=== PATIENT | male | born 1945 | race Caucasian/White ===

== ENCOUNTER → 2018-02-11 12:25 | Outpatient (CLI) | payer MEDICARE, OTHER | END | disposition home or self-care (01) | LOC: D.CT 12:25 | DX: R10.32 Left lower quadrant pain (principal); R31.9 Hematuria, unspecified ==

== ENCOUNTER → 2018-02-27 07:30 | Outpatient (CLI) | payer MEDICARE, OTHER ==
[~2018-02-27 07:30] MED LIST: CHLOR-TRIMETON4 MG PO; FERROUS SULFAT325 MG PO; FLOMAX0.4 MG PO; MOBIC7.5 MG PO; NASACORT10.8 ML NASAL; PROSCAR5 MG PO; SINGULAIR10 MG PO
[2018-05-04 12:14] VITALS: BMI 28.6
== END | disposition home or self-care (01) ==
LOC: D.MRI 07:30
DX: N28.1 Cyst of kidney, acquired (principal); R31.9 Hematuria, unspecified

== ENCOUNTER 2018-04-20 20:48 | Inpatient (IN) | payer MEDICARE, OTHER ==
[~2018-04-20] VITALS: Ht 185.4 cm; Wt 97.7 kg
--- NOTE | ~2018-04-20 | EC ---
PATIENT:KENNETH BUSCH DATE OF SERVICE: 04/20/18 SEX: M MEDICAL RECORD: [id number] DATE OF : [birth year] LOCATION:[place] [address] AGE OF PATIENT: 72 ADMISSION DATE: 04/20/18 REFERRING PHYSICIAN: INTERPRETING PHYSICIAN: GRECIA ALVAREZ MD ECHOCARDIOGRAM REPORT ECHO CHARGES 4 ECHO COMPLETE Date: 04/21/18 CLINICAL DIAGNOSIS: AFIB ECHOCARDIOGRAPHIC MEASUREMENTS (adult normal given) AC root (d.<3.7cm) 3.9 cm LV Septum d (<1.2 cm> 1.6 cm Valve Excursion 1.8 cm LV Septum (systole) 1.7 cm Left Atria (s.<4.0cm> 4.1 cm LVPW d(<1.2cm) 1.4 cm RV (d.<2.3cm) 4.0 cm LVPW (sytole) 2.1 cm LV diastole(<5.6CM) 6.7 cm MV E-F(>70mm/sec) cm LV systole 4.4 cm LVOT Diameter 2.1 cm MV exc.(>10mm) 1.1 cm Est.ejection fraction (50-75%) % DOPPLER: LVIT cm/sec A 89.0 cm/sec E 137 cm/sec LA cm/sec RVSP 34 mmHg LVOT 179 cm/sec AOP1/2T m/s Asc. Ao 208 cm/sec RVOT 74 cm/sec RA cm/sec PA 30 cm/sec AV Gradient Peak 17.28mmHg AV Mean 8.76 mmHg AV Area 2.8 cm MV Gradient Peak 11.83mmHg MV Mean 3.66 mmHg MV Area cm COMMENTS: Assembler Surgical Garment: 2 ARTURO PEPPER Diet Supervisor: 3 Dr. Snow TAPE# PACS Pericardial Effusion Y DATE OF SERVICE: Adequate 2D, jose miguel flow, spectral Doppler and M-Mode. No LVH. LV internal dimension is normal, wall motion normal. EF is greater than or equal to 55%. Aortic valve is tricuspid. No evidence of stenosis by Doppler interrogation. Left atrium is normal. Mitral valve shows no prolapse. Trace MR. Right-sided chamber size is grossly normal. Trace TR. TRANSINT:[id number] Voice Confirmation ID: [id number] DOCUMENT ID: [id number] ECHOCARDIOGRAM REPORT [id number] KENNETH BUSCH GRECIA ALVAREZ MD at 0843 CC: [id number] DICTATION DATE: 04/21/18 1353 COUNTER STACKER: 04/21/18 1400 ADM IN [facility] [address] [place] [id number]
--- NOTE | ~2018-04-20 | OP ---
PATIENT NAME: KENNETH BUSCH MEDICAL RECORD: [id number] :45 LOCATION:[place] ADMISSION DATE:04/20/18 SURGEON: JUAN CHEEMA MD DATE OF OPERATION: 05/05/2018 SURGEON: Juan Cheema MD PROCEDURE: Bronchoscopy. PROCEDURE NOTE: With the patient in the intensive care unit and ventilated, the patient had right upper lobe atelectasis on chest x-ray after replacement of the endotracheal tube to a larger tube earlier and after mitral and aortic valve replacement. The bronchoscope was inserted, but at the tip of the endotracheal tube, the posterior pharynx was visualized, consistent with near extubation. Therefore, the bronchoscope was removed and the endotracheal tube was removed. The patient was bag masked and the case was turned over to anesthesia for intubation. Later, with suctioning of thick mucus, all lobar and segmental bronchi were cleared and the tube was in the appropriate position and a chest x-ray confirmed reexpansion of the right upper lobe. TRANSINT:[id number] Voice Confirmation ID: [id number] DOCUMENT ID: [id number] JUAN CHEEMA MD at 1437 CC: [id number] DICTATION DATE: 05/05/18 1648 FOOD SERVICE SPECIALIST: 05/05/18 1659 ADM IN [place] [id number] [place] [address]
--- NOTE | ~2018-04-20 | EC ---
PATIENT:KENNETH BUSCH DATE OF SERVICE: 04/20/18 SEX: M MEDICAL RECORD: [id number] DATE OF : 45 LOCATION:[place] [address] AGE OF PATIENT: 72 ADMISSION DATE: 04/20/18 REFERRING PHYSICIAN: INTERPRETING PHYSICIAN: BRETT EMERSON MD ECHOCARDIOGRAM REPORT ECHO CHARGES 5 ECHO LIMITED Date: 04/27/18 CLINICAL DIAGNOSIS: ASSESS FOR VEGATATION,ENDOCARDIIS SEPSIS ECHOCARDIOGRAPHIC MEASUREMENTS (adult normal given) AC root (d.<3.7cm) 3.9 cm LV Septum d (<1.2 cm> 1.6 cm Valve Excursion 1.8 cm LV Septum (systole) 1.7 cm Left Atria (s.<4.0cm> 4.1 cm LVPW d(<1.2cm) 1.4 cm RV (d.<2.3cm) 4.0 cm LVPW (sytole) 2.1 cm LV diastole(<5.6CM) 6.7 cm MV E-F(>70mm/sec) cm LV systole 4.4 cm LVOT Diameter 2.1 cm MV exc.(>10mm) 1.1 cm Est.ejection fraction (50-75%) % DOPPLER: LVIT cm/sec A 89.0 cm/sec E 137 cm/sec LA cm/sec RVSP 34 mmHg LVOT 179 cm/sec AOP1/2T m/s Asc. Ao 208 cm/sec RVOT 74 cm/sec RA cm/sec PA 30 cm/sec AV Gradient Peak 17.28mmHg AV Mean 8.76 mmHg AV Area 2.8 cm MV Gradient Peak 11.83mmHg MV Mean 3.66 mmHg MV Area cm COMMENTS: Dental Director: 2 ARTURO PEPPER Glass Maker: 4 Dr. Eemrson TAPE# PACS Pericardial Effusion N DATE OF SERVICE: PROCEDURE: Limited transthoracic echocardiogram. FINDINGS: Looking valvular structure, it appears that there is possibly vegetation on the aortic valve, associated with at least moderate aortic insufficiency. There also appears to be a possible vegetation on the posterior valve leaflet of the mitral valve associated with moderate mitral regurgitation. A transesophageal echo would be more helpful for further characterization. ECHOCARDIOGRAM REPORT [id number] KENNETH BUSCH TRANSINT:[id number] Voice Confirmation ID: [id number] DOCUMENT ID: [id number] BRETT EMERSON MD at 0738 CC: [id number] DICTATION DATE: 04/28/18 0745 ELECTRICAL LINEMAN: 04/28/18 0755 ADM IN [facility] [address] [place] [id number]
--- NOTE | ~2018-04-20 | OP ---
PATIENT NAME: KENNETH BUSCH MEDICAL RECORD: [id number] :45 LOCATION:[place] [facility] ADMISSION DATE:04/20/18 SURGEON: MONTY MCKEON MD DATE OF OPERATION: 05/05/2018 SURGEON: Monty Mckeon MD ASSISTANTS: 1. Elmer Dewitt MD 2. KULDIP Tobin OPERATIONS PERFORMED: 1. Aortic valve replacement (21-mm Fritz pericardial bioprosthesis). 2. Mitral valve replacement (31-mm Fritz Magna mitral bioprosthesis). PREOPERATIVE DIAGNOSIS: Aortic and mitral endocarditis. POSTOPERATIVE DIAGNOSIS: Aortic and mitral endocarditis. ANESTHESIA: General endotracheal anesthesia. ESTIMATED BLOOD LOSS: Total cardiopulmonary bypass with 3 packed red blood cells, 4 FFPs, and 2 platelets. COMPLICATIONS: None. SPECIMENS: 1. Aortic valve leaflets. 2. Mitral valve anterior leaflet and portion of the posterior leaflet with endocarditis. CONDITION: Critical. DISPOSITION: CV ICU. OPERATIVE FINDINGS: 1. Transesophageal echocardiography confirmed aortic and mitral endocarditis with moderate aortic and mitral insufficiency; no chamber dilation; and after separation from cardiopulmonary bypass, no perivalvular aortic or mitral valve insufficiency. 2. Aortic valve had severe endocarditis affecting all 3 cusps of the aortic valve, but did not extend to the annulus, which was noncalcified. 3. The mitral valve had endocarditis along the free edge of the anterior leaflet and also around the posterior leaflet, extending down on to the secondary chordee, which was removed but a portion of the posterior leaflet was preserved. The entire anterior leaflet was removed. 4. Two liters serous right pleural effusion and one liter left pleural effusion. OPERATIVE INDICATION: Aortic and mitral endocarditis. OPERATIVE SUMMARY IN DETAIL: The patient was brought to the operating suite. General anesthesia was obtained. The patient was prepped and draped. A right femoral arterial catheter was placed. Median sternotomy incision was made. Subcutaneous tissue was divided with electrocautery. Sternum was divided with a OPERATIVE REPORT [id number] NARAYANKENNETH saw. The pericardium was opened. Heparin was given. Aorta was cannulated. Bicaval cannulation was performed. Retrograde cardioplegia cannula was inserted. The patient was placed on cardiopulmonary bypass and cooled. Crossclamp was placed. A 14-gauge angiocatheter was used for aortic root cardioplegia site and this was given antegrade as much as possible by 400 cc and then retrograde 800 cc and then retrograde was repeated at 20-minute intervals during the crossclamp time. Transverse aortotomy was performed. The valve was visualized and the infected valve cusps were removed, taking care to protect the left main. The interatrial groove was dissected out. Mitral valve was visualized. Infected portion of the anterior leaflet was taken out as well as the remainder of the anterior leaflet down to the papillary muscles and then the infected one-third of the posterior leaflet, taking care to preserve the apparatus of the medial portion of the posterior leaflet. The valve was sized appropriately. Pledgeted sutures were placed along the atrial side through the sewing ring. The valve was carefully lowered into place. Sutures were tied. On inspecting through the valve, the valve was well seated. Then, working from the atrial side, the mitral valve was visualized with good placement and interrupted pledgeted sutures were placed from ventricular to aortic side through the valve sewing ring and the valve was carefully lowered into place. The sutures were tied. On inspecting through the valve, there was no subvalvular obstruction. Thorough irrigation was undertaken. The patient was rewarmed. The atriotomy was closed with double running pledgeted suture. Then, the aortotomy was closed with double running pledgeted suture. The patient was placed in steep Trendelenburg and the left ventricular apex was de-aired and then, after removal of the crossclamp, again de-aired using the transesophageal echocardiography for assistance. The patient resumed a spontaneous rhythm. Eventually, had some atrial fibrillation that required esmolol, but finally a sinus rhythm. Atrial and ventricular pacing wires were placed. Retrograde cannula was removed and the site was oversewn. The cardioplegia site was used for de-airing and then later closed with pledgeted suture as well as 6-0 suture. The patient was fully rewarmed, weaned from cardiopulmonary bypass, and was stable. The patient was decannulated. Cannula sites were oversewn. Protamine was given. Thorough irrigation was undertaken. Drains were placed in mediastinum and both pleural cavities. The pericardial fat was approximated over the aorta. The sternum was closed with wires. Fascia was closed. Subcutaneous tissue was closed. Skin was closed. Dermabond was placed. Needle and sponge counts were correct. The patient was taken to ICU in stable condition. TRANSINT:[id number] Voice Confirmation ID: [id number] DOCUMENT ID: [id number] MONTY MCKEON MD at 1437 CC: ANGEL MARTINEZ and GRECIA ALVAREZ MD [id number] DICTATION DATE: 05/05/18 1646 RELAY OPERATOR: 05/05/18 1728 ADM IN [facility] [address] [place] [id number]
--- NOTE | ~2018-04-20 | TEE ---
PATIENT:KENNETH BUSCH MEDICAL RECORD: [id number] LOCATION:[place] [address] AGE OF PATIENT: 72 ADMISSION DATE: 04/20/18 SEX: M REFERRING PHYSICIAN: INTERPRETING PHYSICIAN: RIKA FLORES MD TRANSESOPHAGEAL ECHOCARDIOGRAM Date: 05/05/18 KAVON CHARGE Y INDICATIONS: ENDOCARDITIS OF AORTIC AND MITRAL VALVE, AVR/MVR PREMEDICATIONS: PATIENT'S RESPONSE PROCEDURE DOPPLER MEASUREMENTS: LVIT LA PA 30 RA LVOT 179 RVOT 74 Asc. Ao 208 AV Gradient Peak 17.28 AV Mean 8.76 AV Area 2.8 MV Gradient Peak 11.83 MV Mean 3.66 MV Area INTERPRETATION: Doppler: 2-D: VEGATATION ON AORTIC AND MITRAL VALVE COLOR FLOW DOPPLER SEVERE AI/MR NORMAL SALINE STUDY: MISCELLANOUS: DIAGNOSIS: PLAN: Nursing Home Social Worker:Ana Snow Urologist Physician: Alfred PEPPER COMMENTS: MIKE PATIENT DATE OF SERVICE: PROCEDURE: Transesophageal echo evaluation of valvular structures during aortic and mitral valve replacement secondary to endocarditis. FINDINGS: 1. Left ventricular chamber size is within normal limits. Left ventricular systolic function is normal. Overall ejection fraction estimated 60%. 2. Left atrium, right atrium, and right ventricle chamber sizes are within TRANSESOPHAGEAL ECHOCARDIOGRAM REPORT [id number] KENNETH BUSCH normal limits. 3. Valvular structures have a definite vegetation on the mitral valve as well as aortic valve, but this is not a new finding. The patient is scheduled for valve replacement. 4. Doppler interrogation reveals [id number] aortic insufficiency, mild mitral regurgitation, no other valvular insufficiency or stenosis. 5. No evidence of pericardial effusion or left ventricular thrombus. TRANSINT:[id number] Voice Confirmation ID: [id number] DOCUMENT ID: [id number] at 1729 CC: [id number] DICTATION DATE: 05/05/18 1241 AUTOMOBILE RENTAL AGENT: 05/05/18 1247 ADM IN [place] [id number] [place] [address]
--- NOTE | ~2018-04-20 | CN ---
PATIENT NAME:KENNETH BUSCH MEDICAL RECORD: [id number] : 45 LOCATION:[place] ADMIT DATE: 04/20/18 ACCOUNT: [id number] CONSULTING PHYSICIAN: ELMER ROUSSEAU MD REFERRING PHYSICIAN: ANGEL MARTINEZ MD DATE OF CONSULTATION: 04/25/2018 CONSULT REQUESTING PHYSICIAN: Angel Martinez MD REASON FOR CONSULTATION: Vent management status post cardiopulmonary arrest. HISTORY OF PRESENT ILLNESS: Mr. Busch is a 72-year-old gentleman who is now orally intubated and sedated. The patient was brought into the ICU yesterday with sepsis. This morning, the patient had cardiac arrest. The patient was coded, intubated. Now, the history was taken by talking to the nursing staff as well as reviewing the patient's notes. The patient has become asystolic, code blue was called. The patient was sedated by the ER doctor, required epinephrine, atropine, bicarbonate. REVIEW OF SYSTEMS: The detail is not obtainable. PAST MEDICAL HISTORY: 1. History of detached retina. 2. History of kidney stone. 3. History of urinary tract infection. 4. Osteoarthritis. PAST SURGICAL HISTORY: 1. Arthroscopic knee surgery. 2. Bladder surgery. 3. Melanoma removed. ALLERGIES: No known drug allergy. MEDICATIONS: On [place] is reviewed. PERSONAL AND SOCIAL HISTORY: The patient is a nonsmoker, nondrinker. He is and lives with his . FAMILY HISTORY: Noncontributory. PHYSICAL EXAMINATION: GENERAL: Now, the patient is orally intubated and sedated. VITAL SIGNS: The blood pressure is 106/48; pulse is 72; respiration, he is on assist control mechanical ventilation. HEENT: Conjunctivae are pink. Sclerae are not icteric. NECK: Supple, no JVD. CHEST: There are bilateral crackles. No wheezing. HEART: Rate and rhythm is regular, normal sound, no murmur. ABDOMEN: Soft, bowel sounds present. No hepatosplenomegaly. RECTAL: Deferred. EXTREMITIES: No cyanosis, no clubbing. There is no pedal edema. SKIN: Warm, normal turgor. CENTRAL NERVOUS SYSTEM: The patient is orally intubated and sedated. CONSULT REPORT [id number] KENNETH BUSCH LABORATORY DATA: CBC: The WBC is 19.2, hemoglobin 8.8, hematocrit 28.1, the platelet count 213. The neutrophils are 84.5%. Chemistry; ABG: The pH is 7.29, pCO2 is 36.9, the pO2 is 231, the bicarbonate is 18.1. The lactic acid level is 6.54. IMAGING: Chest radiograph: There is bilateral increased interstitial marking consistent with pulmonary edema. There is moderate bilateral pleural effusion. IMPRESSION: 1. Acute respiratory failure secondary to; A. Cardiopulmonary arrest. B. Pulmonary edema, possible pneumonia. 2. Bilateral pleural effusion. 3. Cardiopulmonary arrest. 4. Acute myocardial infarction with elevated cardiac enzymes. 5. Sepsis secondary to Enterococcus bacteremia. 6. Leukocytosis. 7. Lactic acidosis with associated metabolic acidosis. 8. Acute kidney injury. 9. Splenic infarction. 10. Pulmonary edema consistent with a congestive heart failure. 11. Bilateral pleural effusion. RECOMMENDATION: 1. Continue the mechanical ventilation, adjust the setting. 2. Antibiotic per Dr. Hernandez. 3. DVT and GI bleed prophylaxis. 4. Albuterol ipratropium nebulizer. 5. Check sputum for culture and sensitivity. 6. Fluid resuscitation. Keep the CVP [address] Snow is on the case. Nephrology is on the case. Follow up labs and chest radiograph. The prognosis is guarded. Discussed with the RN and BUSINESS DEVELOPER, spoke with the family. The critical care time is 50 minutes. TRANSINT:[id number] Voice Confirmation ID: [id number] DOCUMENT ID: [id number] ELMER ROUSSEAU MD at 1301 CC: [id number] DICTATION DATE: 04/25/18 1240 MEDICAL RECORDS TECHNICIAN: 04/25/18 1312 ADM IN [place] [id number] [place] [id number]
--- NOTE | ~2018-04-20 | EC ---
PATIENT:KENNETH BUSCH DATE OF SERVICE: 04/20/18 SEX: M MEDICAL RECORD: [id number] DATE OF : 45 LOCATION:[place] [address] AGE OF PATIENT: 72 ADMISSION DATE: 04/20/18 REFERRING PHYSICIAN: INTERPRETING PHYSICIAN: GRECIA ALVAREZ MD ECHOCARDIOGRAM REPORT ECHO CHARGES 5 ECHO LIMITED Date: 04/30/18 CLINICAL DIAGNOSIS: ASSESS FOR VEGATATION,ENDOCARDIIS SEPSIS ECHOCARDIOGRAPHIC MEASUREMENTS (adult normal given) AC root (d.<3.7cm) 3.9 cm LV Septum d (<1.2 cm> 1.6 cm Valve Excursion 1.8 cm LV Septum (systole) 1.7 cm Left Atria (s.<4.0cm> 4.1 cm LVPW d(<1.2cm) 1.4 cm RV (d.<2.3cm) 4.0 cm LVPW (sytole) 2.1 cm LV diastole(<5.6CM) 6.7 cm MV E-F(>70mm/sec) cm LV systole 4.4 cm LVOT Diameter 2.1 cm MV exc.(>10mm) 1.1 cm Est.ejection fraction (50-75%) % DOPPLER: LVIT cm/sec A 89.0 cm/sec E 137 cm/sec LA cm/sec RVSP 34 mmHg LVOT 179 cm/sec AOP1/2T m/s Asc. Ao 208 cm/sec RVOT 74 cm/sec RA cm/sec PA 30 cm/sec AV Gradient Peak 17.28mmHg AV Mean 8.76 mmHg AV Area 2.8 cm MV Gradient Peak 11.83mmHg MV Mean 3.66 mmHg MV Area cm COMMENTS: Account Group Supervisor: 2 ARTURO PEPPER Manager Medicaid: 3 Dr. Snow TAPE# PACS Pericardial Effusion N DATE OF SERVICE: PROCEDURE: Transesophageal echo. The patient currently sedated on the vent. The transesophageal Omniplane probe was placed in the distal esophagus and proximal stomach without difficulty. FINDINGS: LVH is present. LV internal dimensions are normal. Wall motion is normal. EF is greater than or equal to 55%. Aortic valve shows obvious vegetation on the coronary cusp. This measures approximately 0.5 cm. There is ECHOCARDIOGRAM REPORT [id number] KENNETH BUSCH moderate AI by color flow imaging. Left atrium appears normal dimensions. Left atrial appendage is well visualized with normal contractility. Mitral valve shows approximately 1 cm vegetation on anterior mitral leaflet with [id number] MR. Right-sided chamber is grossly normal. Mild TR with color flow imaging. At the end of procedure, the probe was turned posterior and this showed minimal atherosclerotic debris in the descending aorta. FINAL IMPRESSION: Findings consistent with endocarditis of both aortic and mitral valve with preserved LV systolic function, moderate AI, moderate to severe MR. TRANSINT:[id number] Voice Confirmation ID: [id number] DOCUMENT ID: [id number] GRECIA ALVAREZ MD at 0843 CC: [id number] DICTATION DATE: 04/30/18 1321 MULE TENDER: 04/30/18 1328 ADM IN [place] [id number] [place] [address]
--- NOTE | ~2018-04-20 | HEMODYNAMI ---
PATIENT:KENNETH BUSCH MEDICAL RECORD: [id number] : 45 [id number] ADMISSION DATE: 04/20/18 Generatedon:05/04/20189:15 Patient name: KENNETH BUSCH Patient #: [id number] SSN: : 1945 Date of study: 05/04/2018 Page: Of Hemodynamic Procedure Report Patient Data Patient Demographics Procedure consent was obtained First Name: KENNETH Gender: Male Last Name: NARAYAN : 1945 Patient #: [id number] Age: 72 year(s) Race: Unknown Additional ID: [id number] Contact details [address]: [address] [place] [address] State: [place] City: [place] Zip code: [address] Past Medical History Allergies: No known allergies Admission Admission Data Admission Date: 04/20/2018 Admission Time: 22:59 Room #: D.2313 Lab Results Lab Result Date: 05/04/2018 Lab Result Time: 0:00 Biochemistry Name Units Result Min Max BUN mg/dl 23 --(----)-* 7 18 Creatinine mg/dl 1 --(--*-)-- 0.6 1.3 CBC Name Units Result Min Max Hemoglobin g/dl 8.2 *-(----)-- 13.5 17.5 Procedure Procedure Types Cath Procedure Diagnostic Procedure C [place] w/Coronaries Procedure Description Procedure Date Procedure Date: 05/04/2018 Procedure Start Time: 9:01 Procedure End Time: 9:08 Procedure Staff Name Function Valentin Farris MD Performing Physician Belle Quiñonez RT Scrub Andres Hsieh RN Nurse Benedict Leger RT Monitor Procedure Data Cath Procedure Fluoroscopy Diagnostic fluoroscopy Total fluoroscopy Time: 1.6 time: 1.6 min min Diagnostic fluoroscopy Total fluoroscopy dose: 705 dose: 705 mGy mGy Contrast Material Contrast Material Type Amount (ml) Isovue 300 55 Entry Location Entry Primary Successful Side Size Upsize Upsize Entry Closure Succes sful Closure Location (Fr) 1 (Fr) 2 (Fr) Remarks Device Remarks Femoral Right 5 Fr Exoseal artery Estimated blood loss: 5 ml Diagnostic catheters Device Type Used For End Catheter Placement MULTIPACK JL 4.0 5Fr Procedure catheter MULTIPACK 3DRC 5Fr Procedure catheter Procedure Complications No complications Procedure Medications Medication Administration Route Dosage 0.9% NaCl I.V. 100 ml/hr Oxygen 15 l/min Heparin Flush Bag added to field 2 bags (1000units/500ml NS) Lidocaine 2% added to field 20 Diprivan 1% 40 mcg/kg/min (Propofol) Hemodynamics Rest HGB: 8.2 (g/dl) Heart Rate: 75 (bpm) Snapshots Pre Cath Intra NCS Post Cath Vital Signs Time Heart Resp SPO2 etCO2 NIBP Rhythm Pain Sedation Rate (ipm) (%) (mmHg) (mmHg) Status Level (bpm) 8:51:58 74 16 100 0 120/52(87) NSR 0 (11) 6(A) , No pain 8:56:47 71 16 99 0 113/51(82) NSR 0 (11) 6(A) , No pain 9:01:34 69 16 98 0 105/47(76) NSR 0 (11) 6(A) , No pain 9:06:21 68 17 99 0 105/48(80) NSR 0 (11) 6(A) , No pain Medications Time Medication Route Dose Verified Delivered Reason Notes Effectiveness by by 8:49:48 0.9% NaCl I.V. 100 ml/hr Andres Andres Per Jori Hsieh physician RN RN 8:50:23 Oxygen OETT 15 l/min Andres Andres for low 02 Jori Hsieh sats RN RN 8:50:38 Heparin Flush added to 2 bags Andres Andres used for Bag field Jori Hsieh procedure (1000units/500ml RN RN NS) 8:50:50 Lidocaine 2% added to 20ml vial Andres Andres for local field Lorigan Jori anesthetic RN RN 8:57:34 Diprivan 1% I.V. 40 Andres Andres for (Propofol) infusing mcg/kg/min Jori Hsieh sedation from [employer] line rider Log Time Note 8:25:03 Daniel Plasencia RT(R) sent for patient. Start room use. 8:25:04 Time tracking: Regular hours (M-F 7:00 - 5:00) 8:25:07 Plan of Care:Hemodynamics will remain stable., Cardiac rhythm will remain stable., Comfort level will be maintained., Respiratory function will remain adequate., Patient/ family verbilizes understanding of procedure., Procedure tolerated without complication., Recovers from procedure without complications.. 8:25:09 Signed procedure consent form obtained from patient. 8:: Lab Result : BUN 23 mg/dl 8:: Lab Result : Creatinine 1 mg/dl 8:: Lab Result : Hemoglobin 8.2 g/dl 8:26:38 H&P Date Dictated: 04/30/2018 Within 30 days and on chart.. 8:38:25 Patient received from ICU to CCL 1 Alert and oriented. Tansferred to table in Supine position. 8:38:26 Warm blankets applied, and abdulaziz hugger turned on for patient comfort. 8:38:26 Correct patient and procedure confirmed by team. 8:38:28 ECG and BP/O2 sat monitors applied to patient. 8:49:48 0.9% NaCl 100 ml/hr I.V. was administered by Andres Hsieh RN; Per physician; 8:50:23 Oxygen 15 l/min OETT was administered by Andres Hsieh RN; for low 02 sats; 8:50:38 Heparin Flush Bag (1000units/500ml NS) 2 bags added to field was administered by Andres Hsieh RN; used for procedure; 8:50:50 Lidocaine 2% 20ml vial added to field was administered by Andres Hsieh RN; for local anesthetic; 8:50:56 Vital chart was started 8:51:34 Baseline sample Acquired. 8:51:47 Rhythm: sinus rhythm 8:52:00 Full Disclosure recording started 8:52:05 Pre-procedure instructions explained to patient. 8:52:11 Unable to provide pre-op teaching due to educational barrier. On vent 8:52:18 Family in patients room. 8:52:19 Patient NPO since Midnight. 8:52:30 Patient allergic to No known allergies 8:52:34 Is the patient allergic to Iodine/contrast media? No. 8:53:44 Is patient on blood thinner?Yes 8:53:48 ACC The patient was administered the following blood thiners within the last 24 hours: ACCLovenox 8:53:55 Patient diabetic? Unknown. 8:54:02 Previous problem with sedation/anesthesia? Unknown ? 8:54:03 Snore? Unknown 8:54:05 Sleep apnea? Unknown 8:54:06 Deviated septum? Unknown 8:54:08 Opens mouth fully? Unknown 8:54:09 Sticks out tongue? Unknown 8:54:10 Airway obstruction? Unknown ? 8:54:14 Dentures? Unknown ? 8:54:16 Pre procedure: right dorsailis pedis pulse 2+ Normal; easily identifiable; not easily obliterated 8:54:26 IV patent on arrival in Right upper arm with 0.9% NaCl at [facility]. 8:54:28 Lab results completed and on chart. 8:54:32 Right groin area was prepped with chlora-prep and draped in sterile fashion 8:54:34 Alarms reviewed by R. N. 8:54:34 Sharps counted by scrub and verified by R.N. 8:54:37 Use device set Femoral Dx 8:54:38 ACIST Syringe (05791) opened to sterile field. 8:54:39 Bag Decanter (2002S) opened to sterile field. 8:54:39 Medline Cath Pack ([id number]) opened to sterile field. 8:54:41 ACIST Hand Control (59478) opened to sterile field. 8:54:41 ACIST Manifold (49351) opened to sterile field. 8:54:42 Tegaderm 4 x 4 (1626W) opened to sterile field. 8:54:44 SHEATH Prelude 5Fr 0.035 ([id number]-4U-17-035) opened to sterile field. 8:54:46 DIAGNOSTIC WIRE .035 260cm J wire (650363) opened to sterile field. 8:54:47 DIAGNOSTIC Multipack 5Fr catheter set ([id number]) opened to sterile field. 8:54:56 Physician arrived 8:54:57 --------ALL STOP TIME OUT------ 8:54:57 Final Timeout: patient, procedure, and site verified with staff and physician. All members of the team are in agreement. 8:54:59 Right groin site verified by team. 8:55:12 Physical assessment completed. ASA score P 4 - A patient with severe systemic disease that is a constant threat to life as per Valentin Farris MD. 8:55:20 Sedation plan: Local Anesthetic Medication:Lidocaine 8:56:09 Zero performed for pressure channel P1 8:56:33 Zero performed for pressure channel P1 8:57:34 Diprivan 1% (Propofol) 40 mcg/kg/min I.V. infusing from ICU was administered by Andres Hsieh RN; for sedation; 9:01:34 Procedure started. 9:01:37 Local anesthetic to right femoral artery with Lidocaine 2% by Valentin Farris MD.INITIAL ACCESS ONLY 9:01:46 A 5 Fr sheath was inserted into the Right Femoral artery 9:02:45 A MULTIPACK JL 4.0 5Fr catheter was advanced over the wire and used for Procedure. 9:04:06 LCA angiography performed. 9:04:07 Catheter exchanged over wire. 9:04:13 A MULTIPACK 3DRC 5Fr catheter was advanced over the wire and used for Procedure. 9:05:39 RCA angiography performed. 9:06:09 Catheter removed. 9:06:17 EXOSEAL 5Fr (EX500) opened to sterile field. 9:06:29 Sheath removed intact; hemostasis achieved with Exoseal to the Right Femoral artery. 9:06:30 Procedure ended.(Physican Out) 9:06:57 Fluoroscopy time 01.60 minutes. 9:07:00 Fluoroscopy dose: 705 mGy 9:07:00 Flurop Dose total: 705 9:07:03 Contrast amount:Isovue 300 55ml. 9:07:04 Sharps counted by scrub and verified by R.N. 9:07:05 Insertion/operative site no bleeding no hematoma. 9:07:11 Post-op/insertion site Right Femoral artery dressed using a 4 x 4 and Tegaderm. 9:07:44 Post right femoral artery:stable, soft, clean and dry 9:07:49 Post Procedure Pulses reassessed and unchanged 9:07:53 Post-procedure physical assessment completed. ASA score P 4 - A patient with severe systemic disease that is a constant threat to life as per Valentin Farris MD. 9:07:55 Post procedure rhythm: unchanged. 9:07:58 Estimated blood loss: 5 ml 9:08:00 Post procedure instruction explained to patient.Patient verbalizes understanding. 9:08:01 Patient needs reinforcement of post procedure teaching. 9:08:21 Procedure and supply charges have been captured, reviewed, submitted and are correct. 9:08:23 Procedure Complication : No complications 9:08:25 Vital chart was stopped 9:08:26 See physician's report for complete and final results. 9:08:37 Report given to ICU. 9:08:39 Patient transfered to ICU with Stretcher. 9:08:43 Procedure ended. 9:08:43 Full Disclosure recording stopped 9:08:53 End room use (Document Last) Device Usage Item Name Manufacture Quantity Catalog Number Hospital Part Current M inimal Lot# / Charge Number Stock Stock Serial# Code ACIST Syringe Acist 1 22463 162989 030607 [id number] 2 0 (80418) [employer] Bag Decanter Microtek 1 2001S 941217 12756 [id number] 5 (2001S) Medical Inc. Medline Cath Cardinal 1 [id number] 383359 15118 582387 5 Pack Health ([id number]) ACIST Hand Acist 1 10896 212259 246655 087077 5 Control (74156) [employer] Inc ACIST Manifold Acist 1 32415 900011 904636 569142 5 (16301) [employer] Inc Tegaderm 4 x 4 3M 1 1626W 881696 547409 476051 5 (1626W) SHEATH Prelude Merit 1 [id number]-2T-99-035 694563 243054 177771 5 5Fr 0.035 Medical (SWN-9A-75-035) DIAGNOSTIC WIRE [facility] Alexandre 1 526817 683939 841378 966935 3 0 .035 260cm J wire (521389) DIAGNOSTIC Cardinal 1 [id number] 030921 98215 117332 3 0 Multipack 5Fr Health catheter set (NB9944) MULTIPACK JL Cardinal 1 582133 5 4.0 5Fr Health catheter MULTIPACK 3DRC Cardinal 1 733312 5 5Fr catheter Health EXOSEAL 5Fr Cardinal 1 EX500 367849 334615 966826 1 0 (EX500) Health Signature Audit [place] Stage Time Signature Unsigned Intra-Procedure 05/04/2018 Benedict Leger 9:15:42 AM RT(R) Signatures Monitor : Benedict Leger RT Signature : Date : Time : [address] [place] [address]
[2018-04-20 21:36] LABS: BASOPHILS 0.2 % (0-2); EOSINOPHILS 0 % (0-7); HEMATOCRIT 31.1 % (42.0-54.0); IMMATURE GRANULOCYTES 0.3 % (0-5); LYMPHOCYTES 12.4 % (15-50); MCH 26.9 pg (26.0-34.0); MCHC 32.2 g/dL (31.0-37.0); MCV 83.6 fL (80.0-100.0); MEAN PLATELET VOLUME 11.6 fL (7.4-10.4); MONOCYTES 4.8 % (2-11); NEUTROPHILS 82.3 % (40-80); PLATELET COUNT 137 10x3/uL (130-400); RBC 3.72 10x6/uL (4.20-6.10); RDW 15.5 % (11.5-14.5); WBC 8.6 10x3/uL (4.8-10.8)
[2018-04-20 21:50] LABS: ALBUMIN 2.8 g/dL (3.4-5.0); ANION GAP 14.8 mmol/L (8-16); BILIRUBIN - TOTAL 1.37 mg/dL (0.2-1.3); CALCIUM 8.7 mg/dL (8.5-10.1); CARBON DIOXIDE 22.1 mmol/L (21.0-32.0); CREATININE - SERUM 1.3 mg/dL (0.6-1.3); POTASSIUM - SERUM 3.9 mmol/L (3.5-5.1); PROTEIN - SERUM 6.4 g/dL (6.4-8.2)
[2018-04-20 22:47] LABS: APPEARANCE HAZY (CLEAR); BILIRUBIN NEGATIVE (NEGATIVE); COLOR YELLOW (YELLOW); GLUCOSE NEGATIVE (NEGATIVE); KETONE NEGATIVE (NEGATIVE); NITRITE NEGATIVE (NEGATIVE); PROTEIN NEGATIVE (NEGATIVE); UROBILINOGEN NORMAL (NORMAL)
[2018-04-20 22:48] LABS: BACTERIA MANY /hpf (NONE SEEN); RED CELLS - URINE OCC /hpf (0-5); WHITE CELLS - URINE >50 /hpf (0-5)
[2018-04-20] MEDS ORDERED: FLOMAX0.4 MG PO ×2 (23:52→23:53)
[2018-04-20] MEDS ORDERED: FERROUS SULFAT325 MG PO (23:54)
[2018-04-20] MEDS ORDERED: SINGULAIR10 MG PO (23:55)
[2018-04-20] MEDS ORDERED: MOBIC7.5 MG PO (23:56)
[2018-04-20] MEDS ORDERED: PROSCAR5 MG PO (23:57)
[2018-04-20] MEDS ORDERED: NASACORT10.8 ML NASAL (23:58)
[2018-04-20] MEDS ORDERED: CHLOR-TRIMETON4 MG PO (23:59)
[2018-04-21 00:15] VITALS: BP 103/43; BMI 28.4
[2018-04-21 04:00] VITALS: BP 103/43
[2018-04-21 08:08] VITALS: BP 94/40
[2018-04-21 20:14] VITALS: BP 108/37
[2018-04-22 00:19] VITALS: BP 109/32
[2018-04-22 04:00] VITALS: BP 109/35
[2018-04-22 06:26] LABS: BASOPHILS 0.1 % (0-2); EOSINOPHILS 0.1 % (0-7); HEMATOCRIT 29.2 % (42.0-54.0); HEMOGLOBIN 9.5 g/dL (13.5-17.5); IMMATURE GRANULOCYTES 0.3 % (0-5); LYMPHOCYTES 13.5 % (15-50); MCH 26.9 pg (26.0-34.0); MCHC 32.5 g/dL (31.0-37.0); MCV 82.7 fL (80.0-100.0); MEAN PLATELET VOLUME 11.1 fL (7.4-10.4); MONOCYTES 4.5 % (2-11); NEUTROPHILS 81.5 % (40-80); PLATELET COUNT 134 10x3/uL (130-400); RBC 3.53 10x6/uL (4.20-6.10); RDW 15.8 % (11.5-14.5); WBC 8.8 10x3/uL (4.8-10.8)
[2018-04-22 07:19] LABS: ALBUMIN 2.6 g/dL (3.4-5.0); ANION GAP 13.4 mmol/L (8-16); BILIRUBIN - TOTAL 1.15 mg/dL (0.2-1.3); CALCIUM 9.1 mg/dL (8.5-10.1); CREATININE - SERUM 1.5 mg/dL (0.6-1.3); POTASSIUM - SERUM 4.4 mmol/L (3.5-5.1); PROTEIN - SERUM 6.1 g/dL (6.4-8.2)
[2018-04-22 07:50] VITALS: BP 103/40
[2018-04-22 10:50] VITALS: BP 89/47
[2018-04-22 15:11] VITALS: BP 100/50
[2018-04-23] VITALS: BP 88/30
[2018-04-23 04:00] VITALS: BP 87/35
[2018-04-23 06:01] LABS: BASOPHILS 0.2 % (0-2); EOSINOPHILS 0 % (0-7); HEMATOCRIT 30.1 % (42.0-54.0); HEMOGLOBIN 9.7 g/dL (13.5-17.5); IMMATURE GRANULOCYTES 0.2 % (0-5); LYMPHOCYTES 13.3 % (15-50); MCH 26.9 pg (26.0-34.0); MCHC 32.2 g/dL (31.0-37.0); MCV 83.4 fL (80.0-100.0); MONOCYTES 5.7 % (2-11); NEUTROPHILS 80.6 % (40-80); PLATELET COUNT 142 10x3/uL (130-400); RBC 3.61 10x6/uL (4.20-6.10); WBC 8.9 10x3/uL (4.8-10.8)
[2018-04-23 06:44] LABS: ANION GAP 17.7 mmol/L (8-16); CALCIUM 9.6 mg/dL (8.5-10.1); CARBON DIOXIDE 17.8 mmol/L (21.0-32.0); CREATININE - SERUM 1.8 mg/dL (0.6-1.3); POTASSIUM - SERUM 4.5 mmol/L (3.5-5.1)
[2018-04-23 07:46] VITALS: BP 90/33
[2018-04-23 11:26] VITALS: BP 90/34
[2018-04-23 15:13] VITALS: BP 87/34
[2018-04-23 20:41] VITALS: BP 90/32
[2018-04-24 04:54] VITALS: BP 82/23
[2018-04-24 07:53] LABS: ALBUMIN 2.8 g/dL (3.4-5.0); ANION GAP 18.4 mmol/L (8-16); BILIRUBIN - TOTAL 1.46 mg/dL (0.2-1.3); CALCIUM 9.9 mg/dL (8.5-10.1); CARBON DIOXIDE 17.2 mmol/L (21.0-32.0); CREATININE - SERUM 2.2 mg/dL (0.6-1.3); POTASSIUM - SERUM 4.6 mmol/L (3.5-5.1); PROTEIN - SERUM 6.7 g/dL (6.4-8.2)
[2018-04-24 08:29] LABS: HEMATOCRIT 29.4 % (42.0-54.0); HEMOGLOBIN 9.8 g/dL (13.5-17.5); LYMPHOCYTES 12.2 % (15-50); MCH 27.5 pg (26.0-34.0); MCHC 33.3 g/dL (31.0-37.0); MCV 82.4 fL (80.0-100.0); NEUTROPHILS 83.8 % (40-80); PLATELET COUNT 200 10x3/uL (130-400); RBC 3.57 10x6/uL (4.20-6.10); RDW 16.7 % (11.5-14.5); WBC 12.6 10x3/uL (4.8-10.8)
[2018-04-24 09:23] VITALS: BP 92/34
[2018-04-24 13:26] VITALS: BP 92/27
[2018-04-24 18:00] VITALS: BP 101/77
[2018-04-25] VITALS (33 sets, daily range): BP systolic 83–144; BP diastolic 46–58
[2018-04-25 05:27] LABS: BASOPHILS 0.1 % (0-2); EOSINOPHILS 0 % (0-7); HEMATOCRIT 28.1 % (42.0-54.0); IMMATURE GRANULOCYTES 0.9 % (0-5); LYMPHOCYTES 9.9 % (15-50); MCH 27.2 pg (26.0-34.0); MEAN PLATELET VOLUME 11.5 fL (7.4-10.4); MONOCYTES 4.6 % (2-11); NEUTROPHILS 84.5 % (40-80); PLATELET COUNT 227 10x3/uL (130-400); RBC 3.31 10x6/uL (4.20-6.10); RDW 16.1 % (11.5-14.5)
[2018-04-25 05:30] LABS: MCV 84.9 fL (80.0-100.0); WBC 19.3 10x3/uL (4.8-10.8)
[2018-04-25 05:31] LABS: ERYTHROCYTE SEDIMENTATION RATE 43 mm/hr (0-20)
[2018-04-25 06:03] LABS: CALCIUM 9.3 mg/dL (8.5-10.1); CARBON DIOXIDE 17.4 mmol/L (21.0-32.0); CHLORIDE - SERUM 106 mmol/L (98-107); CKMB 2.3 U/L (0.0-3.6); CREATINE KINASE 52 UL (21-232); GLUCOSE 155 mg/dL (74-106); POTASSIUM - SERUM 5.2 mmol/L (3.5-5.1); SODIUM 136 mmol/L (136-145)
[2018-04-25 06:10] LABS: CALC OSMOLALITY 298 mosm/kg (275-300); UREA NITROGEN 81 mg/dL (7-18); eGFR NON AFRICAN AMERICAN 22 mL/min (90-120)
[2018-04-25 11:59] LABS: HEMATOCRIT 28.1 % (42.0-54.0); HEMOGLOBIN 8.8 g/dL (13.5-17.5); MCH 27.4 pg (26.0-34.0); MCHC 31.3 g/dL (31.0-37.0); MEAN PLATELET VOLUME 11.8 fL (7.4-10.4); PLATELET COUNT 213 10x3/uL (130-400); RBC 3.21 10x6/uL (4.20-6.10); RDW 16.4 % (11.5-14.5); WBC 19.2 10x3/uL (4.8-10.8)
[2018-04-25 12:27] LABS: MCV 87.5 fL (80.0-100.0)
[2018-04-25 12:54] LABS: HYPOCHROMASIA 2+; LYMPHOCYTES 13 % (15-50); MONOCYTES 4 % (2-11); NEUTROPHILS 78 % (40-80); PLATELET ESTIMATE NORMAL
[2018-04-25 12:55] LABS: ANISOCYTOSIS 3+; ROULEAUX 1+; SMUDGE CELLS 1+
[2018-04-25 13:02] LABS: CALC OSMOLALITY 306 mosm/kg (275-300); CALCIUM 9.2 mg/dL (8.5-10.1); CARBON DIOXIDE 20.7 mmol/L (21.0-32.0); CHLORIDE - SERUM 107 mmol/L (98-107); GLUCOSE 155 mg/dL (74-106); POTASSIUM - SERUM 4.5 mmol/L (3.5-5.1); SODIUM 139 mmol/L (136-145); UREA NITROGEN 86 mg/dL (7-18); eGFR NON AFRICAN AMERICAN 22 mL/min (90-120)
[2018-04-25 13:30] LABS: CREATINE KINASE 43 UL (21-232)
[2018-04-25 13:31] LABS: CKMB 2.1 U/L (0.0-3.6); TROPONIN-I 0.348 ng/mL (0.000-0.060)
[2018-04-25 14:14] LABS: APPEARANCE CLOUDY (CLEAR); BILIRUBIN NEGATIVE (NEGATIVE); COLOR YELLOW (YELLOW); GLUCOSE NEGATIVE (NEGATIVE); KETONE NEGATIVE (NEGATIVE); NITRITE NEGATIVE (NEGATIVE); PROTEIN TRACE mg/dL (NEGATIVE); UROBILINOGEN NORMAL (NORMAL)
[2018-04-25 14:16] LABS: AMORPHOUS SEDIMENT >1+ /lpf (NONE SEEN); BACTERIA FEW /hpf (NONE SEEN); EPITHELIAL CELLS OCC /hpf (0-5); RED CELLS - URINE >50 /hpf (0-5)
[2018-04-25 14:17] LABS: GRANULAR CAST 0-5 /lpf (NONE SEEN); HYALINE CAST 0-5 /lpf (NONE SEEN); RED CELL CAST OCC /lpf (NONE SEEN)
[2018-04-26] VITALS (60 sets, daily range): BP systolic 92–152; BP diastolic 14–67
[2018-04-26 07:07] LABS: BASOPHILS 0.1 % (0-2); EOSINOPHILS 0 % (0-7); HEMATOCRIT 29.1 % (42.0-54.0); HEMOGLOBIN 9.4 g/dL (13.5-17.5); IMMATURE GRANULOCYTES 1.4 % (0-5); MCH 27.2 pg (26.0-34.0); MCHC 32.3 g/dL (31.0-37.0); MEAN PLATELET VOLUME 11.4 fL (7.4-10.4); MONOCYTES 6.1 % (2-11); NEUTROPHILS 79.4 % (40-80); RBC 3.46 10x6/uL (4.20-6.10); RDW 16.5 % (11.5-14.5); WBC 18.1 10x3/uL (4.8-10.8)
[2018-04-26 07:12] LABS: MCV 84.1 fL (80.0-100.0); PLATELET COUNT 278 10x3/uL (130-400)
[2018-04-26 07:17] LABS: ALBUMIN 2.4 g/dL (3.4-5.0); ANION GAP 14.3 mmol/L (8-16); BILIRUBIN - TOTAL 1.1 mg/dL (0.2-1.3); CALCIUM 8.8 mg/dL (8.5-10.1); CREATININE - SERUM 2.7 mg/dL (0.6-1.3); PROTEIN - SERUM 5.9 g/dL (6.4-8.2)
[2018-04-26 07:18] LABS: POTASSIUM - SERUM 3.3 mmol/L (3.5-5.1)
[2018-04-26 23:06] LABS: APPEARANCE CLEAR (CLEAR); BACTERIA NONE SEEN /hpf (NONE SEEN); BILIRUBIN NEGATIVE (NEGATIVE); COLOR YELLOW (YELLOW); EPITHELIAL CELLS NSEEN /hpf (0-5); GLUCOSE NEGATIVE (NEGATIVE); KETONE SMALL mg/dL (NEGATIVE); NITRITE NEGATIVE (NEGATIVE); PROTEIN NEGATIVE (NEGATIVE); RED CELLS - URINE 0-5 /hpf (0-5); UROBILINOGEN NORMAL (NORMAL); WHITE CELLS - URINE RARE /hpf (0-5)
[2018-04-27] VITALS (59 sets, daily range): BP systolic 78–115; BP diastolic 41–79; BMI 28.6
[2018-04-27 03:47] LABS: BASOPHILS 0.1 % (0-2); EOSINOPHILS 0 % (0-7); HEMATOCRIT 28.8 % (42.0-54.0); HEMOGLOBIN 9.2 g/dL (13.5-17.5); IMMATURE GRANULOCYTES 0.9 % (0-5); LYMPHOCYTES 13.5 % (15-50); MCH 27.4 pg (26.0-34.0); MCHC 31.9 g/dL (31.0-37.0); MCV 85.7 fL (80.0-100.0); MEAN PLATELET VOLUME 10.7 fL (7.4-10.4); MONOCYTES 6.3 % (2-11); NEUTROPHILS 79.2 % (40-80); RBC 3.36 10x6/uL (4.20-6.10); RDW 17.2 % (11.5-14.5); WBC 13.7 10x3/uL (4.8-10.8)
[2018-04-27 03:50] LABS: PLATELET COUNT 214 10x3/uL (130-400)
[2018-04-27 04:03] LABS: ALBUMIN 2.2 g/dL (3.4-5.0); BILIRUBIN - TOTAL 1.08 mg/dL (0.2-1.3); CALCIUM 8.4 mg/dL (8.5-10.1); CREATININE - SERUM 2.4 mg/dL (0.6-1.3); MAGNESIUM - SERUM 2.5 mg/dL (1.8-2.4); POTASSIUM - SERUM 3.2 mmol/L (3.5-5.1); PROTEIN - SERUM 5.4 g/dL (6.4-8.2); VANCOMYCIN - RANDOM 20.3 ug/mL (10.0-20.0)
[2018-04-27 04:11] LABS: ANION GAP 8.1 mmol/L (8-16); CARBON DIOXIDE 30.1 mmol/L (21.0-32.0)
[2018-04-28] VITALS (51 sets, daily range): BP systolic 92–151; BP diastolic 40–70
[2018-04-28 03:45] LABS: BASOPHILS 0.1 % (0-2); EOSINOPHILS 0 % (0-7); HEMATOCRIT 30.1 % (42.0-54.0); HEMOGLOBIN 9.5 g/dL (13.5-17.5); IMMATURE GRANULOCYTES 0.7 % (0-5); LYMPHOCYTES 10.7 % (15-50); MCH 27.9 pg (26.0-34.0); MCHC 31.6 g/dL (31.0-37.0); MEAN PLATELET VOLUME 10.5 fL (7.4-10.4); MONOCYTES 5.2 % (2-11); NEUTROPHILS 83.3 % (40-80); PLATELET COUNT 206 10x3/uL (130-400); RBC 3.41 10x6/uL (4.20-6.10); RDW 18.6 % (11.5-14.5); WBC 12.4 10x3/uL (4.8-10.8)
[2018-04-28 03:50] LABS: MCV 88.3 fL (80.0-100.0)
[2018-04-28 04:01] LABS: ANION GAP 8.7 mmol/L (8-16); BILIRUBIN - TOTAL 1.01 mg/dL (0.2-1.3); CALCIUM 8.2 mg/dL (8.5-10.1); CARBON DIOXIDE 30.4 mmol/L (21.0-32.0); CREATININE - SERUM 1.9 mg/dL (0.6-1.3); MAGNESIUM - SERUM 2.4 mg/dL (1.8-2.4); PHOSPHOROUS 3.5 mg/dL (2.5-4.9); POTASSIUM - SERUM 3.1 mmol/L (3.5-5.1); PROTEIN - SERUM 5.4 g/dL (6.4-8.2)
[2018-04-29] VITALS (25 sets, daily range): BP systolic 92–127; BP diastolic 43–62
[2018-04-29 03:47] LABS: BASOPHILS 0.2 % (0-2); EOSINOPHILS 0 % (0-7); IMMATURE GRANULOCYTES 0.3 % (0-5); LYMPHOCYTES 10.8 % (15-50); MCH 27.9 pg (26.0-34.0); MCHC 31.3 g/dL (31.0-37.0); MCV 89.4 fL (80.0-100.0); MEAN PLATELET VOLUME 10.8 fL (7.4-10.4); MONOCYTES 5.3 % (2-11); NEUTROPHILS 83.4 % (40-80); RBC 3.58 10x6/uL (4.20-6.10); RDW 19.4 % (11.5-14.5); WBC 10.2 10x3/uL (4.8-10.8)
[2018-04-29 03:51] LABS: PLATELET COUNT 161 10x3/uL (130-400)
[2018-04-29 04:11] LABS: ALBUMIN 2.2 g/dL (3.4-5.0); ANION GAP 13.4 mmol/L (8-16); BILIRUBIN - TOTAL 0.92 mg/dL (0.2-1.3); CALCIUM 8.2 mg/dL (8.5-10.1); CARBON DIOXIDE 26.2 mmol/L (21.0-32.0); CREATININE - SERUM 1.6 mg/dL (0.6-1.3); MAGNESIUM - SERUM 2.5 mg/dL (1.8-2.4); POTASSIUM - SERUM 3.6 mmol/L (3.5-5.1); PROTEIN - SERUM 5.9 g/dL (6.4-8.2); VANCOMYCIN - RANDOM 12.8 ug/mL (10.0-20.0)
[2018-04-29 13:17] LABS: FUNGUS STAIN Final report (())
[2018-04-29 20:09] LABS: AFB SPECIMEN PROCESSING Concentration (())
[2018-04-30] VITALS (24 sets, daily range): BP systolic 89–122; BP diastolic 39–51
[2018-04-30 04:16] LABS: BASOPHILS 0.1 % (0-2); EOSINOPHILS 0 % (0-7); HEMOGLOBIN 10.1 g/dL (13.5-17.5); IMMATURE GRANULOCYTES 0.4 % (0-5); LYMPHOCYTES 8.4 % (15-50); MCH 27.9 pg (26.0-34.0); MCHC 31.6 g/dL (31.0-37.0); MCV 88.4 fL (80.0-100.0); MEAN PLATELET VOLUME 10.6 fL (7.4-10.4); MONOCYTES 5.1 % (2-11); PLATELET COUNT 139 10x3/uL (130-400); RBC 3.62 10x6/uL (4.20-6.10); RDW 19.3 % (11.5-14.5); WBC 12.1 10x3/uL (4.8-10.8)
[2018-04-30 04:32] LABS: ANION GAP 9.2 mmol/L (8-16); BILIRUBIN - TOTAL 0.81 mg/dL (0.2-1.3); CALCIUM 8.1 mg/dL (8.5-10.1); CARBON DIOXIDE 28.2 mmol/L (21.0-32.0); CREATININE - SERUM 1.4 mg/dL (0.6-1.3); MAGNESIUM - SERUM 2.3 mg/dL (1.8-2.4); POTASSIUM - SERUM 3.4 mmol/L (3.5-5.1); PROTEIN - SERUM 5.6 g/dL (6.4-8.2)
[2018-05-01] VITALS (24 sets, daily range): BP systolic 104–169; BP diastolic 42–65
[2018-05-01 02:48] LABS: BASOPHILS 0.1 % (0-2); EOSINOPHILS 0 % (0-7); HEMATOCRIT 29.6 % (42.0-54.0); HEMOGLOBIN 9.3 g/dL (13.5-17.5); IMMATURE GRANULOCYTES 0.6 % (0-5); LYMPHOCYTES 9.9 % (15-50); MCH 27.7 pg (26.0-34.0); MCHC 31.4 g/dL (31.0-37.0); MCV 88.1 fL (80.0-100.0); MONOCYTES 4.9 % (2-11); NEUTROPHILS 84.5 % (40-80); PLATELET COUNT 124 10x3/uL (130-400); RBC 3.36 10x6/uL (4.20-6.10); RDW 19.1 % (11.5-14.5)
[2018-05-01 03:14] LABS: ALBUMIN 1.9 g/dL (3.4-5.0); ANION GAP 13.3 mmol/L (8-16); BILIRUBIN - TOTAL 0.53 mg/dL (0.2-1.3); CALCIUM 8.1 mg/dL (8.5-10.1); CARBON DIOXIDE 24.7 mmol/L (21.0-32.0); CREATININE - SERUM 1.1 mg/dL (0.6-1.3); MAGNESIUM - SERUM 2.4 mg/dL (1.8-2.4); PROTEIN - SERUM 5.6 g/dL (6.4-8.2); VANCOMYCIN - RANDOM 14.5 ug/mL (10.0-20.0)
[2018-05-01 14:37] LABS: BASOPHILS 0.2 % (0-2); EOSINOPHILS 0 % (0-7); HEMATOCRIT 31.3 % (42.0-54.0); HEMOGLOBIN 9.9 g/dL (13.5-17.5); IMMATURE GRANULOCYTES 0.4 % (0-5); LYMPHOCYTES 16.5 % (15-50); MCHC 31.6 g/dL (31.0-37.0); MCV 88.7 fL (80.0-100.0); MEAN PLATELET VOLUME 10.5 fL (7.4-10.4); MONOCYTES 4.7 % (2-11); NEUTROPHILS 78.2 % (40-80); PLATELET COUNT 125 10x3/uL (130-400); RBC 3.53 10x6/uL (4.20-6.10); RDW 19.3 % (11.5-14.5); WBC 9.5 10x3/uL (4.8-10.8)
[2018-05-01 15:17] LABS: ALBUMIN 2.1 g/dL (3.4-5.0); ANION GAP 11.1 mmol/L (8-16); BILIRUBIN - TOTAL 0.53 mg/dL (0.2-1.3); CALCIUM 8.1 mg/dL (8.5-10.1); CREATININE - SERUM 1.1 mg/dL (0.6-1.3); POTASSIUM - SERUM 4.1 mmol/L (3.5-5.1); PROTEIN - SERUM 5.5 g/dL (6.4-8.2)
[2018-05-02] VITALS (21 sets, daily range): BP systolic 114–143; BP diastolic 45–56
[2018-05-02 05:46] LABS: BASOPHILS 0.2 % (0-2); EOSINOPHILS 0 % (0-7); HEMATOCRIT 28.3 % (42.0-54.0); HEMOGLOBIN 8.9 g/dL (13.5-17.5); IMMATURE GRANULOCYTES 0.4 % (0-5); LYMPHOCYTES 13.4 % (15-50); MCH 27.7 pg (26.0-34.0); MCHC 31.4 g/dL (31.0-37.0); MCV 88.2 fL (80.0-100.0); MEAN PLATELET VOLUME 10.7 fL (7.4-10.4); MONOCYTES 6.6 % (2-11); NEUTROPHILS 79.4 % (40-80); PLATELET COUNT 124 10x3/uL (130-400); RBC 3.21 10x6/uL (4.20-6.10); WBC 8.3 10x3/uL (4.8-10.8)
[2018-05-02 06:13] LABS: APTT 41.7 SECONDS (22.8-39.4); INR 1.2 (0.85-1.17); PROTIME 14.7 SECONDS (11.6-15.0)
[2018-05-02 06:14] LABS: ALBUMIN 1.9 g/dL (3.4-5.0); ANION GAP 9.9 mmol/L (8-16); BILIRUBIN - TOTAL 0.5 mg/dL (0.2-1.3); CALCIUM 8.1 mg/dL (8.5-10.1); CARBON DIOXIDE 27.2 mmol/L (21.0-32.0); CREATININE - SERUM 1.1 mg/dL (0.6-1.3); D-DIMER-QUANTITATIVE 1.46 ug/mLFEU (0.20-0.54); MAGNESIUM - SERUM 2.2 mg/dL (1.8-2.4); PHOSPHOROUS 2.6 mg/dL (2.5-4.9); POTASSIUM - SERUM 4.1 mmol/L (3.5-5.1); PROTEIN - SERUM 5.5 g/dL (6.4-8.2)
[2018-05-03] VITALS (24 sets, daily range): BP systolic 105–146; BP diastolic 40–58
[2018-05-03 04:53] LABS: BASOPHILS 0.1 % (0-2); EOSINOPHILS 0 % (0-7); HEMATOCRIT 27.3 % (42.0-54.0); HEMOGLOBIN 8.5 g/dL (13.5-17.5); IMMATURE GRANULOCYTES 0.1 % (0-5); LYMPHOCYTES 18.1 % (15-50); MCH 27.5 pg (26.0-34.0); MCHC 31.1 g/dL (31.0-37.0); MCV 88.3 fL (80.0-100.0); MEAN PLATELET VOLUME 10.3 fL (7.4-10.4); MONOCYTES 5.9 % (2-11); NEUTROPHILS 75.8 % (40-80); PLATELET COUNT 121 10x3/uL (130-400); RBC 3.09 10x6/uL (4.20-6.10); WBC 7.3 10x3/uL (4.8-10.8)
[2018-05-03 05:06] LABS: CALC OSMOLALITY 293 mosm/kg (275-300); CALCIUM 7.9 mg/dL (8.5-10.1); CARBON DIOXIDE 27.5 mmol/L (21.0-32.0); CHLORIDE - SERUM 110 mmol/L (98-107); GLUCOSE 105 mg/dL (74-106); MAGNESIUM - SERUM 2.1 mg/dL (1.8-2.4); PHOSPHOROUS 2.3 mg/dL (2.5-4.9); POTASSIUM - SERUM 3.9 mmol/L (3.5-5.1); SODIUM 145 mmol/L (136-145); UREA NITROGEN 26 mg/dL (7-18); eGFR NON AFRICAN AMERICAN 78 mL/min (90-120)
[2018-05-03 10:27] LABS: BASOPHILS 0.2 % (0-2); EOSINOPHILS 0 % (0-7); HEMATOCRIT 25.7 % (42.0-54.0); IMMATURE GRANULOCYTES 0.2 % (0-5); LYMPHOCYTES 14.3 % (15-50); MCH 27.5 pg (26.0-34.0); MCHC 31.1 g/dL (31.0-37.0); MCV 88.3 fL (80.0-100.0); MEAN PLATELET VOLUME 10.4 fL (7.4-10.4); MONOCYTES 7.8 % (2-11); NEUTROPHILS 77.5 % (40-80); PLATELET COUNT 117 10x3/uL (130-400); RBC 2.91 10x6/uL (4.20-6.10); RDW 18.7 % (11.5-14.5); WBC 6.6 10x3/uL (4.8-10.8)
[2018-05-03 10:41] LABS: CALC OSMOLALITY 294 mosm/kg (275-300); CALCIUM 7.6 mg/dL (8.5-10.1); CARBON DIOXIDE 27.3 mmol/L (21.0-32.0); CHLORIDE - SERUM 111 mmol/L (98-107); CREATININE - SERUM 0.9 mg/dL (0.6-1.3); GLUCOSE 105 mg/dL (74-106); SODIUM 146 mmol/L (136-145); UREA NITROGEN 24 mg/dL (7-18); eGFR NON AFRICAN AMERICAN 88 mL/min (90-120)
[2018-05-03 11:29] LABS: BASOPHILS 0.2 % (0-2); EOSINOPHILS 0 % (0-7); HEMATOCRIT 26.5 % (42.0-54.0); HEMOGLOBIN 8.2 g/dL (13.5-17.5); IMMATURE GRANULOCYTES 0.2 % (0-5); LYMPHOCYTES 18.6 % (15-50); MCH 27.2 pg (26.0-34.0); MCHC 30.9 g/dL (31.0-37.0); MEAN PLATELET VOLUME 10.7 fL (7.4-10.4); MONOCYTES 5.5 % (2-11); NEUTROPHILS 75.5 % (40-80); PLATELET COUNT 107 10x3/uL (130-400); RBC 3.01 10x6/uL (4.20-6.10)
[2018-05-04] VITALS (24 sets, daily range): BP systolic 101–167; BP diastolic 43–61; Ht 185.4 cm; Wt 97.7 kg
[2018-05-04 04:31] LABS: ALBUMIN 1.7 g/dL (3.4-5.0); ALKALINE PHOSPHATASE 87 U/L (46-116); BILIRUBIN - TOTAL 0.33 mg/dL (0.2-1.3); CALC OSMOLALITY 294 mosm/kg (275-300); CALCIUM 7.9 mg/dL (8.5-10.1); CARBON DIOXIDE 28.6 mmol/L (21.0-32.0); CHLORIDE - SERUM 110 mmol/L (98-107); GLUCOSE 102 mg/dL (74-106); MAGNESIUM - SERUM 2.1 mg/dL (1.8-2.4); PHOSPHOROUS 2.7 mg/dL (2.5-4.9); POTASSIUM - SERUM 3.9 mmol/L (3.5-5.1); PROTEIN - SERUM 5.4 g/dL (6.4-8.2); SODIUM 146 mmol/L (136-145); UREA NITROGEN 23 mg/dL (7-18); eGFR NON AFRICAN AMERICAN 78 mL/min (90-120)
[2018-05-04 04:34] LABS: ALT (SGPT) 28 U/L (10-68)
[2018-05-04 06:07] LABS: VIRAL RESP. - ADENOVIRUS Negative (Negative); VIRAL RESP. - INFLUENZA A Negative (Negative); VIRAL RESP. - INFLUENZA B Negative (Negative); VIRAL RESP. - PARAINFLUENZA 1 Negative (Negative); VIRAL RESP. - PARAINFLUENZA 2 Negative (Negative); VIRAL RESP. - PARAINFLUENZA 3 Negative (Negative); VIRAL RESP. - RSV Negative (Negative)
[2018-05-04 07:58] LABS: BASOPHILS 0.1 % (0-2); EOSINOPHILS 0.1 % (0-7); HEMATOCRIT 27.1 % (42.0-54.0); HEMOGLOBIN 8.4 g/dL (13.5-17.5); IMMATURE GRANULOCYTES 0.3 % (0-5); LYMPHOCYTES 15.6 % (15-50); MCH 27.2 pg (26.0-34.0); MCV 87.7 fL (80.0-100.0); MEAN PLATELET VOLUME 11.3 fL (7.4-10.4); MONOCYTES 4.8 % (2-11); NEUTROPHILS 79.1 % (40-80); RBC 3.09 10x6/uL (4.20-6.10); RDW 18.7 % (11.5-14.5); WBC 7.5 10x3/uL (4.8-10.8)
[2018-05-04 07:59] LABS: PLATELET COUNT 137 10x3/uL (130-400)
[2018-05-04 08:09] LABS: APTT 34.6 SECONDS (22.8-39.4); INR 1.14 (0.85-1.17); PROTIME 14.2 SECONDS (11.6-15.0)
[2018-05-04 08:13] LABS: ALBUMIN 1.8 g/dL (3.4-5.0); ALKALINE PHOSPHATASE 85 U/L (46-116); ALT (SGPT) 30 U/L (10-68); BILIRUBIN - TOTAL 0.33 mg/dL (0.2-1.3); CALC OSMOLALITY 286 mosm/kg (275-300); CHLORIDE - SERUM 110 mmol/L (98-107); GLUCOSE 101 mg/dL (74-106); POTASSIUM - SERUM 3.9 mmol/L (3.5-5.1); PROTEIN - SERUM 5.4 g/dL (6.4-8.2); SODIUM 142 mmol/L (136-145); UREA NITROGEN 23 mg/dL (7-18); eGFR NON AFRICAN AMERICAN 78 mL/min (90-120)
[2018-05-04 12:10] LABS: PHOSPHOROUS 2.8 mg/dL (2.5-4.9); T4 THYROXIN - FREE 0.84 ng/dL (0.76-1.46); THYROID STIMULATING HORMONE 2.65 uIU/mL (0.36-3.74); URIC ACID 2.8 mg/dL (2.6-7.2)
[2018-05-04 12:21] LABS: APTT 31.3 SECONDS (22.8-39.4); INR 1.16 (0.85-1.17); PROTIME 14.4 SECONDS (11.6-15.0)
[2018-05-04 19:00] LABS: APPEARANCE CLEAR (CLEAR); BILIRUBIN NEGATIVE (NEGATIVE); COLOR YELLOW (YELLOW); GLUCOSE NEGATIVE (NEGATIVE); KETONE SMALL mg/dL (NEGATIVE); NITRITE NEGATIVE (NEGATIVE); PROTEIN TRACE mg/dL (NEGATIVE); SPECIFIC GRAVITY 1.025 (1.005-1.020); UROBILINOGEN NORMAL (NORMAL)
[2018-05-05] VITALS (42 sets, daily range): BP systolic 90–159; BP diastolic 40–83
[2018-05-05 14:24] LABS: PROTIME 16.8 SECONDS (11.6-15.0)
[2018-05-05 14:39] LABS: APTT 39.9 SECONDS (22.8-39.4); INR 1.41 (0.85-1.17)
[2018-05-05 14:55] LABS: BASOPHILS 0.1 % (0-2); EOSINOPHILS 0 % (0-7); HEMATOCRIT 26.3 % (42.0-54.0); HEMOGLOBIN 8.7 g/dL (13.5-17.5); IMMATURE GRANULOCYTES 0.4 % (0-5); MCH 28.5 pg (26.0-34.0); MCHC 33.1 g/dL (31.0-37.0); MCV 86.2 fL (80.0-100.0); MEAN PLATELET VOLUME 9.8 fL (7.4-10.4); MONOCYTES 3.6 % (2-11); NEUTROPHILS 87.9 % (40-80); PLATELET COUNT 146 10x3/uL (130-400); RBC 3.05 10x6/uL (4.20-6.10); RDW 16.9 % (11.5-14.5)
[2018-05-05 14:56] LABS: WBC 17.8 10x3/uL (4.8-10.8)
[2018-05-05 16:19] LABS: FUNGUS CULTURE RESULT 1 Candida albicans (())
[2018-05-05 18:05] LABS: BASOPHILS 0.1 % (0-2); EOSINOPHILS 0 % (0-7); HEMATOCRIT 24.1 % (42.0-54.0); IMMATURE GRANULOCYTES 0.4 % (0-5); LYMPHOCYTES 6.6 % (15-50); MCH 28.6 pg (26.0-34.0); MCHC 33.2 g/dL (31.0-37.0); MCV 86.1 fL (80.0-100.0); MEAN PLATELET VOLUME 10.5 fL (7.4-10.4); MONOCYTES 2.8 % (2-11); NEUTROPHILS 90.1 % (40-80); PLATELET COUNT 122 10x3/uL (130-400); RDW 16.8 % (11.5-14.5); WBC 15.3 10x3/uL (4.8-10.8)
[2018-05-05 18:35] LABS: INR 1.32 (0.85-1.17); PROTIME 15.9 SECONDS (11.6-15.0)
[2018-05-06] VITALS (93 sets, daily range): BP systolic 87–130; BP diastolic 34–73
[2018-05-06 06:13] LABS: HEMATOCRIT 24.3 % (42.0-54.0); HEMOGLOBIN 8.2 g/dL (13.5-17.5); MCH 27.9 pg (26.0-34.0); MCHC 33.7 g/dL (31.0-37.0); MEAN PLATELET VOLUME 10.6 fL (7.4-10.4); RBC 2.94 10x6/uL (4.20-6.10); RDW 17.1 % (11.5-14.5)
[2018-05-06 06:21] LABS: MCV 82.7 fL (80.0-100.0)
[2018-05-06 06:26] LABS: INR 1.33 (0.85-1.17)
[2018-05-06 06:30] LABS: BILIRUBIN - TOTAL 0.67 mg/dL (0.2-1.3); CALCIUM 7.8 mg/dL (8.5-10.1); MAGNESIUM - SERUM 2.3 mg/dL (1.8-2.4); PROTEIN - SERUM 4.7 g/dL (6.4-8.2)
[2018-05-06 06:33] LABS: ANION GAP 16.5 mmol/L (8-16); CREATININE - SERUM 1.6 mg/dL (0.6-1.3); POTASSIUM - SERUM 4.5 mmol/L (3.5-5.1)
[2018-05-06 20:16] LABS: BASOPHILS 0.2 % (0-2); EOSINOPHILS 0 % (0-7); HEMATOCRIT 22.9 % (42.0-54.0); HEMOGLOBIN 7.7 g/dL (13.5-17.5); IMMATURE GRANULOCYTES 0.5 % (0-5); LYMPHOCYTES 9.1 % (15-50); MCH 28.2 pg (26.0-34.0); MCHC 33.6 g/dL (31.0-37.0); MCV 83.9 fL (80.0-100.0); MEAN PLATELET VOLUME 10.8 fL (7.4-10.4); MONOCYTES 9.2 % (2-11); PLATELET COUNT 113 10x3/uL (130-400); RBC 2.73 10x6/uL (4.20-6.10); RDW 17.5 % (11.5-14.5); WBC 12.6 10x3/uL (4.8-10.8)
[2018-05-06 20:34] LABS: MAGNESIUM - SERUM 2.4 mg/dL (1.8-2.4)
[2018-05-06 20:36] LABS: POTASSIUM - SERUM 3.8 mmol/L (3.5-5.1)
[2018-05-06 20:57] LABS: ALBUMIN 1.9 g/dL (3.4-5.0); ANION GAP 14.5 mmol/L (8-16); BILIRUBIN - TOTAL 0.45 mg/dL (0.2-1.3); CARBON DIOXIDE 25.3 mmol/L (21.0-32.0); CREATININE - SERUM 1.6 mg/dL (0.6-1.3); POTASSIUM - SERUM 3.8 mmol/L (3.5-5.1); PROTEIN - SERUM 4.5 g/dL (6.4-8.2)
[2018-05-07] VITALS (97 sets, daily range): BP systolic 98–166; BP diastolic 37–67
[2018-05-07 05:15] LABS: HEMATOCRIT 25.7 % (42.0-54.0); HEMOGLOBIN 8.6 g/dL (13.5-17.5); MCH 28.1 pg (26.0-34.0); MCHC 33.5 g/dL (31.0-37.0); MEAN PLATELET VOLUME 11.7 fL (7.4-10.4); RBC 3.06 10x6/uL (4.20-6.10); RDW 17.4 % (11.5-14.5); WBC 13.2 10x3/uL (4.8-10.8)
[2018-05-07 05:45] LABS: INR 1.24 (0.85-1.17); PROTIME 15.1 SECONDS (11.6-15.0)
[2018-05-07 05:46] LABS: ALBUMIN 1.8 g/dL (3.4-5.0); ANION GAP 9.2 mmol/L (8-16); BILIRUBIN - TOTAL 0.48 mg/dL (0.2-1.3); CALCIUM 7.9 mg/dL (8.5-10.1); CARBON DIOXIDE 27.5 mmol/L (21.0-32.0); CREATININE - SERUM 1.6 mg/dL (0.6-1.3); MAGNESIUM - SERUM 2.3 mg/dL (1.8-2.4); POTASSIUM - SERUM 3.7 mmol/L (3.5-5.1)
[2018-05-08] VITALS (94 sets, daily range): BP systolic 101–194; BP diastolic 37–86
[2018-05-08 05:21] LABS: HEMATOCRIT 22.5 % (42.0-54.0); MCH 28.5 pg (26.0-34.0); MCHC 33.3 g/dL (31.0-37.0); MCV 85.6 fL (80.0-100.0); RBC 2.63 10x6/uL (4.20-6.10); RDW 17.5 % (11.5-14.5); WBC 10.9 10x3/uL (4.8-10.8)
[2018-05-08 05:22] LABS: HEMOGLOBIN 7.5 g/dL (13.5-17.5)
[2018-05-08 05:35] LABS: ALBUMIN 1.6 g/dL (3.4-5.0); ANION GAP 9.6 mmol/L (8-16); BILIRUBIN - TOTAL 0.42 mg/dL (0.2-1.3); CARBON DIOXIDE 28.5 mmol/L (21.0-32.0); CREATININE - SERUM 1.3 mg/dL (0.6-1.3); MAGNESIUM - SERUM 2.2 mg/dL (1.8-2.4); POTASSIUM - SERUM 3.1 mmol/L (3.5-5.1); PROTEIN - SERUM 4.6 g/dL (6.4-8.2)
[2018-05-08 06:21] LABS: APTT 33.9 SECONDS (22.8-39.4); INR 1.26 (0.85-1.17); PROTIME 15.3 SECONDS (11.6-15.0)
[2018-05-08 18:55] LABS: ALBUMIN 1.7 g/dL (3.4-5.0); BILIRUBIN - TOTAL 0.49 mg/dL (0.2-1.3); CALCIUM 7.9 mg/dL (8.5-10.1); CARBON DIOXIDE 28.8 mmol/L (21.0-32.0); CREATININE - SERUM 1.2 mg/dL (0.6-1.3)
[2018-05-08 19:00] LABS: ANION GAP 9.9 mmol/L (8-16); POTASSIUM - SERUM 7.7 mmol/L (3.5-5.1)
[2018-05-09] VITALS (82 sets, daily range): BP systolic 95–136; BP diastolic 42–78
[2018-05-09 05:43] LABS: MCH 28.2 pg (26.0-34.0); MCHC 32.8 g/dL (31.0-37.0); MEAN PLATELET VOLUME 11.4 fL (7.4-10.4); RDW 17.7 % (11.5-14.5); WBC 11.5 10x3/uL (4.8-10.8)
[2018-05-09 05:53] LABS: HEMATOCRIT 30.2 % (42.0-54.0); HEMOGLOBIN 9.9 g/dL (13.5-17.5); RBC 3.51 10x6/uL (4.20-6.10)
[2018-05-09 06:05] LABS: ALBUMIN 1.6 g/dL (3.4-5.0); ANION GAP 14.9 mmol/L (8-16); BILIRUBIN - TOTAL 0.49 mg/dL (0.2-1.3); CARBON DIOXIDE 24.7 mmol/L (21.0-32.0); CREATININE - SERUM 1.3 mg/dL (0.6-1.3); POTASSIUM - SERUM 3.6 mmol/L (3.5-5.1); PROTEIN - SERUM 5.1 g/dL (6.4-8.2)
[2018-05-10] VITALS (96 sets, daily range): BP systolic 107–138; BP diastolic 42–72
[2018-05-10 05:18] LABS: ALBUMIN 1.7 g/dL (3.4-5.0); ALKALINE PHOSPHATASE 87 U/L (46-116); ALT (SGPT) 21 U/L (10-68); BILIRUBIN - TOTAL 0.56 mg/dL (0.2-1.3); CALC OSMOLALITY 295 mosm/kg (275-300); CALCIUM 8.1 mg/dL (8.5-10.1); CARBON DIOXIDE 26.1 mmol/L (21.0-32.0); CHLORIDE - SERUM 111 mmol/L (98-107); GLUCOSE 107 mg/dL (74-106); MAGNESIUM - SERUM 1.9 mg/dL (1.8-2.4); POTASSIUM - SERUM 3.7 mmol/L (3.5-5.1); PROTEIN - SERUM 5.2 g/dL (6.4-8.2); SODIUM 146 mmol/L (136-145); UREA NITROGEN 27 mg/dL (7-18); eGFR NON AFRICAN AMERICAN 78 mL/min (90-120)
[2018-05-10 05:54] LABS: HEMOGLOBIN 9.9 g/dL (13.5-17.5); MCHC 31.9 g/dL (31.0-37.0); MCV 87.8 fL (80.0-100.0); MEAN PLATELET VOLUME 11.4 fL (7.4-10.4); RBC 3.53 10x6/uL (4.20-6.10); RDW 17.9 % (11.5-14.5); WBC 8.8 10x3/uL (4.8-10.8)
[2018-05-10 14:33] LABS: INR 1.21 (0.85-1.17); PROTIME 14.9 SECONDS (11.6-15.0)
[2018-05-10 14:34] LABS: D-DIMER-QUANTITATIVE 3.17 ug/mLFEU (0.20-0.54)
[2018-05-11] VITALS (90 sets, daily range): BP systolic 106–179; BP diastolic 5–82
[2018-05-11 05:54] LABS: HEMATOCRIT 29.7 % (42.0-54.0); HEMOGLOBIN 9.3 g/dL (13.5-17.5); MCH 27.9 pg (26.0-34.0); MCHC 31.3 g/dL (31.0-37.0); MCV 89.2 fL (80.0-100.0); MEAN PLATELET VOLUME 11.6 fL (7.4-10.4); RBC 3.33 10x6/uL (4.20-6.10); RDW 17.5 % (11.5-14.5); WBC 9.7 10x3/uL (4.8-10.8)
[2018-05-11 06:28] LABS: ALBUMIN 1.6 g/dL (3.4-5.0); ALKALINE PHOSPHATASE 77 U/L (46-116); ALT (SGPT) 18 U/L (10-68); BILIRUBIN - TOTAL 0.54 mg/dL (0.2-1.3); CALC OSMOLALITY 291 mosm/kg (275-300); CALCIUM 8.1 mg/dL (8.5-10.1); CARBON DIOXIDE 27.5 mmol/L (21.0-32.0); CHLORIDE - SERUM 110 mmol/L (98-107); GLUCOSE 107 mg/dL (74-106); MAGNESIUM - SERUM 1.8 mg/dL (1.8-2.4); POTASSIUM - SERUM 3.7 mmol/L (3.5-5.1); PROTEIN - SERUM 5.1 g/dL (6.4-8.2); SODIUM 145 mmol/L (136-145); UREA NITROGEN 22 mg/dL (7-18); eGFR NON AFRICAN AMERICAN 78 mL/min (90-120)
[2018-05-11 09:58] LABS: D-DIMER-QUANTITATIVE 3.22 ug/mLFEU (0.20-0.54)
[2018-05-11 10:59] LABS: APPEARANCE CLEAR (CLEAR); COLOR YELLOW (YELLOW); SPECIFIC GRAVITY 1.005 (1.005-1.020)
[2018-05-11 11:00] LABS: BILIRUBIN NEGATIVE (NEGATIVE); GLUCOSE NEGATIVE (NEGATIVE); KETONE NEGATIVE (NEGATIVE); NITRITE NEGATIVE (NEGATIVE); PROTEIN NEGATIVE (NEGATIVE); UROBILINOGEN NORMAL (NORMAL)
[2018-05-12] VITALS (96 sets, daily range): BP systolic 92–149; BP diastolic 44–80
[2018-05-12 06:06] LABS: HEMOGLOBIN 9.4 g/dL (13.5-17.5); MCH 28.1 pg (26.0-34.0); MCHC 31.3 g/dL (31.0-37.0); MCV 89.8 fL (80.0-100.0); MEAN PLATELET VOLUME 11.6 fL (7.4-10.4); RBC 3.34 10x6/uL (4.20-6.10); RDW 17.2 % (11.5-14.5); WBC 8.8 10x3/uL (4.8-10.8)
[2018-05-12 06:52] LABS: ALBUMIN 1.7 g/dL (3.4-5.0); ANION GAP 9.2 mmol/L (8-16); BILIRUBIN - TOTAL 0.56 mg/dL (0.2-1.3); CALCIUM 8.3 mg/dL (8.5-10.1); CARBON DIOXIDE 29.5 mmol/L (21.0-32.0); CREATININE - SERUM 1.1 mg/dL (0.6-1.3); MAGNESIUM - SERUM 1.7 mg/dL (1.8-2.4); PHOSPHOROUS 2.8 mg/dL (2.5-4.9); POTASSIUM - SERUM 3.7 mmol/L (3.5-5.1); PROTEIN - SERUM 5.6 g/dL (6.4-8.2)
[2018-05-12 10:19] LABS: PATH REVIEW PERIPHERAL SMEAR REVIEWED
[2018-05-13] VITALS (49 sets, daily range): BP systolic 88–134; BP diastolic 49–93
[2018-05-13 06:41] LABS: HEMATOCRIT 32.3 % (42.0-54.0); HEMOGLOBIN 10.2 g/dL (13.5-17.5); MCH 28.2 pg (26.0-34.0); MCHC 31.6 g/dL (31.0-37.0); MCV 89.2 fL (80.0-100.0); MEAN PLATELET VOLUME 11.6 fL (7.4-10.4); RBC 3.62 10x6/uL (4.20-6.10); RDW 16.9 % (11.5-14.5); WBC 9.5 10x3/uL (4.8-10.8)
[2018-05-13 06:53] LABS: ALBUMIN 1.9 g/dL (3.4-5.0); ALKALINE PHOSPHATASE 88 U/L (46-116); ALT (SGPT) 16 U/L (10-68); BILIRUBIN - TOTAL 0.77 mg/dL (0.2-1.3); CALC OSMOLALITY 286 mosm/kg (275-300); CALCIUM 8.6 mg/dL (8.5-10.1); CARBON DIOXIDE 25.5 mmol/L (21.0-32.0); CHLORIDE - SERUM 107 mmol/L (98-107); GLUCOSE 103 mg/dL (74-106); POTASSIUM - SERUM 3.5 mmol/L (3.5-5.1); SODIUM 143 mmol/L (136-145); UREA NITROGEN 19 mg/dL (7-18); eGFR NON AFRICAN AMERICAN 78 mL/min (90-120)
[2018-05-14] VITALS (24 sets, daily range): BP systolic 92–159; BP diastolic 49–84
[2018-05-14 06:21] LABS: HEMATOCRIT 31.9 % (42.0-54.0); MCH 27.9 pg (26.0-34.0); MCHC 31.3 g/dL (31.0-37.0); MCV 89.1 fL (80.0-100.0); RBC 3.58 10x6/uL (4.20-6.10); RDW 16.4 % (11.5-14.5); WBC 8.6 10x3/uL (4.8-10.8)
[2018-05-14 06:47] LABS: ALBUMIN 1.9 g/dL (3.4-5.0); ANION GAP 10.2 mmol/L (8-16); BILIRUBIN - TOTAL 0.79 mg/dL (0.2-1.3); CALCIUM 8.7 mg/dL (8.5-10.1); CARBON DIOXIDE 29.1 mmol/L (21.0-32.0); CREATININE - SERUM 1.1 mg/dL (0.6-1.3); POTASSIUM - SERUM 3.3 mmol/L (3.5-5.1)
[2018-05-15] VITALS (12 sets, daily range): BP systolic 95–130; BP diastolic 60–74
[2018-05-15 03:33] LABS: HEMATOCRIT 31.1 % (42.0-54.0); HEMOGLOBIN 9.7 g/dL (13.5-17.5); MCH 27.9 pg (26.0-34.0); MCHC 31.2 g/dL (31.0-37.0); MCV 89.4 fL (80.0-100.0); RBC 3.48 10x6/uL (4.20-6.10); RDW 16.3 % (11.5-14.5); WBC 8.9 10x3/uL (4.8-10.8)
[2018-05-15 04:03] LABS: ALBUMIN 2.1 g/dL (3.4-5.0); ANION GAP 11.4 mmol/L (8-16); BILIRUBIN - TOTAL 0.72 mg/dL (0.2-1.3); CALCIUM 8.9 mg/dL (8.5-10.1); CARBON DIOXIDE 28.3 mmol/L (21.0-32.0); CREATININE - SERUM 1.1 mg/dL (0.6-1.3); MAGNESIUM - SERUM 1.8 mg/dL (1.8-2.4); PHOSPHOROUS 2.9 mg/dL (2.5-4.9); POTASSIUM - SERUM 3.7 mmol/L (3.5-5.1)
[2018-05-15 22:13] LABS: PROTEIN - BODY FLUID 2.6 G/DL
[2018-05-15 22:36] LABS: MESOTHELIALS BF 8 %; NEUT - BF 81 %
[2018-05-16] VITALS (24 sets, daily range): BP systolic 85–1105; BP diastolic 47–75
[2018-05-16 05:36] LABS: BASOPHILS 0.5 % (0-2); EOSINOPHILS 0.1 % (0-7); HEMATOCRIT 32.2 % (42.0-54.0); HEMOGLOBIN 10.1 g/dL (13.5-17.5); IMMATURE GRANULOCYTES 0.3 % (0-5); LYMPHOCYTES 13.7 % (15-50); MCH 27.9 pg (26.0-34.0); MCHC 31.4 g/dL (31.0-37.0); MEAN PLATELET VOLUME 10.9 fL (7.4-10.4); MONOCYTES 10.5 % (2-11); NEUTROPHILS 74.9 % (40-80); RBC 3.62 10x6/uL (4.20-6.10); WBC 9.3 10x3/uL (4.8-10.8)
[2018-05-16 05:49] LABS: ANION GAP 8.6 mmol/L (8-16); CALCIUM 8.8 mg/dL (8.5-10.1); CARBON DIOXIDE 30.1 mmol/L (21.0-32.0); CREATININE - SERUM 1.1 mg/dL (0.6-1.3); PLATELET COUNT 292 10x3/uL (130-400); POTASSIUM - SERUM 3.7 mmol/L (3.5-5.1)
[2018-05-17] VITALS (23 sets, daily range): BP systolic 79–118; BP diastolic 41–70
[2018-05-17 03:37] LABS: BASOPHILS 0.4 % (0-2); EOSINOPHILS 0.1 % (0-7); HEMATOCRIT 30.7 % (42.0-54.0); HEMOGLOBIN 9.5 g/dL (13.5-17.5); IMMATURE GRANULOCYTES 0.6 % (0-5); LYMPHOCYTES 15.5 % (15-50); MCH 27.8 pg (26.0-34.0); MCHC 30.9 g/dL (31.0-37.0); MCV 89.8 fL (80.0-100.0); MEAN PLATELET VOLUME 10.8 fL (7.4-10.4); MONOCYTES 9.3 % (2-11); NEUTROPHILS 74.1 % (40-80); PLATELET COUNT 296 10x3/uL (130-400); RBC 3.42 10x6/uL (4.20-6.10); RDW 16.2 % (11.5-14.5); WBC 9.1 10x3/uL (4.8-10.8)
[2018-05-17 04:02] LABS: ALBUMIN 2.1 g/dL (3.4-5.0); CALC OSMOLALITY 282 mosm/kg (275-300); CALCIUM 8.9 mg/dL (8.5-10.1); CARBON DIOXIDE 32.6 mmol/L (21.0-32.0); CHLORIDE - SERUM 104 mmol/L (98-107); GLUCOSE 113 mg/dL (74-106); MAGNESIUM - SERUM 1.8 mg/dL (1.8-2.4); PHOSPHOROUS 2.9 mg/dL (2.5-4.9); POTASSIUM - SERUM 3.4 mmol/L (3.5-5.1); SODIUM 141 mmol/L (136-145); UREA NITROGEN 16 mg/dL (7-18); eGFR NON AFRICAN AMERICAN 78 mL/min (90-120)
[2018-05-17 04:34] LABS: ERYTHROCYTE SEDIMENTATION RATE 23 mm/hr (0-20)
[2018-05-17 12:07] LABS: ACID FAST SMEAR Negative (()); AFB SPECIMEN PROCESSING Concentration (())
[2018-05-18] VITALS (24 sets, daily range): BP systolic 91–119; BP diastolic 42–80
[2018-05-18 04:38] LABS: BASOPHILS 0.6 % (0-2); EOSINOPHILS 0.3 % (0-7); HEMATOCRIT 28.9 % (42.0-54.0); IMMATURE GRANULOCYTES 0.6 % (0-5); LYMPHOCYTES 16.2 % (15-50); MCH 27.5 pg (26.0-34.0); MCHC 31.1 g/dL (31.0-37.0); MCV 88.4 fL (80.0-100.0); MEAN PLATELET VOLUME 10.6 fL (7.4-10.4); MONOCYTES 9.7 % (2-11); NEUTROPHILS 72.6 % (40-80); PLATELET COUNT 262 10x3/uL (130-400); RBC 3.27 10x6/uL (4.20-6.10); RDW 16.2 % (11.5-14.5)
[2018-05-18 04:51] LABS: CALC OSMOLALITY 282 mosm/kg (275-300); CALCIUM 8.8 mg/dL (8.5-10.1); CHLORIDE - SERUM 104 mmol/L (98-107); CREATININE - SERUM 0.8 mg/dL (0.6-1.3); GLUCOSE 103 mg/dL (74-106); MAGNESIUM - SERUM 1.8 mg/dL (1.8-2.4); PHOSPHOROUS 2.6 mg/dL (2.5-4.9); POTASSIUM - SERUM 3.2 mmol/L (3.5-5.1); SODIUM 141 mmol/L (136-145); UREA NITROGEN 17 mg/dL (7-18); eGFR NON AFRICAN AMERICAN > 90 mL/min (90-120)
[2018-05-18 04:53] LABS: WBC 6.8 10x3/uL (4.8-10.8)
[2018-05-19] VITALS (22 sets, daily range): BP systolic 94–120; BP diastolic 41–72
[2018-05-19 05:46] LABS: BASOPHILS 0.2 % (0-2); EOSINOPHILS 0.4 % (0-7); HEMOGLOBIN 9.3 g/dL (13.5-17.5); IMMATURE GRANULOCYTES 0.5 % (0-5); LYMPHOCYTES 13.7 % (15-50); MCH 27.5 pg (26.0-34.0); MCV 88.8 fL (80.0-100.0); MEAN PLATELET VOLUME 10.3 fL (7.4-10.4); MONOCYTES 9.7 % (2-11); NEUTROPHILS 75.5 % (40-80); PLATELET COUNT 252 10x3/uL (130-400); RBC 3.38 10x6/uL (4.20-6.10); RDW 16.3 % (11.5-14.5); WBC 8.2 10x3/uL (4.8-10.8)
[2018-05-19 06:07] LABS: ALBUMIN 2.1 g/dL (3.4-5.0); ALKALINE PHOSPHATASE 95 U/L (46-116); ALT (SGPT) 21 U/L (10-68); BILIRUBIN - TOTAL 0.52 mg/dL (0.2-1.3); CALC OSMOLALITY 278 mosm/kg (275-300); CALCIUM 8.5 mg/dL (8.5-10.1); CARBON DIOXIDE 32.1 mmol/L (21.0-32.0); CHLORIDE - SERUM 103 mmol/L (98-107); GLUCOSE 102 mg/dL (74-106); POTASSIUM - SERUM 3.5 mmol/L (3.5-5.1); PROTEIN - SERUM 5.3 g/dL (6.4-8.2); SODIUM 139 mmol/L (136-145); UREA NITROGEN 15 mg/dL (7-18); eGFR NON AFRICAN AMERICAN 78 mL/min (90-120)
[2018-05-19 13:33] LABS: APPEARANCE HAZY (CLEAR); BACTERIA FEW /hpf (NONE SEEN); BILIRUBIN NEGATIVE (NEGATIVE); COLOR YELLOW (YELLOW); EPITHELIAL CELLS OCC /hpf (0-5); GLUCOSE NEGATIVE (NEGATIVE); KETONE NEGATIVE (NEGATIVE); MUCUS <1+ /lpf (NONE SEEN); NITRITE NEGATIVE (NEGATIVE); PROTEIN NEGATIVE (NEGATIVE); RED CELLS - URINE RARE /hpf (0-5); SPECIFIC GRAVITY 1.005 (1.005-1.020); UROBILINOGEN NORMAL (NORMAL)
[2018-05-20] VITALS (28 sets, daily range): BP systolic 97–121; BP diastolic 45–73
[2018-05-21] VITALS (24 sets, daily range): BP systolic 98–133; BP diastolic 46–81
[2018-05-21 05:22] LABS: BASOPHILS 0.2 % (0-2); EOSINOPHILS 0.8 % (0-7); HEMATOCRIT 28.7 % (42.0-54.0); HEMOGLOBIN 9.1 g/dL (13.5-17.5); IMMATURE GRANULOCYTES 0.6 % (0-5); LYMPHOCYTES 14.3 % (15-50); MCH 27.1 pg (26.0-34.0); MCHC 31.7 g/dL (31.0-37.0); MONOCYTES 9.2 % (2-11); NEUTROPHILS 74.9 % (40-80); PLATELET COUNT 244 10x3/uL (130-400); RBC 3.36 10x6/uL (4.20-6.10); RDW 16.1 % (11.5-14.5); WBC 8.6 10x3/uL (4.8-10.8)
[2018-05-21 05:31] LABS: MCV 85.4 fL (80.0-100.0)
[2018-05-21 05:32] LABS: CALC OSMOLALITY 274 mosm/kg (275-300); CALCIUM 8.7 mg/dL (8.5-10.1); CHLORIDE - SERUM 103 mmol/L (98-107); CREATININE - SERUM 0.9 mg/dL (0.6-1.3); GLUCOSE 112 mg/dL (74-106); POTASSIUM - SERUM 3.6 mmol/L (3.5-5.1); SODIUM 137 mmol/L (136-145); UREA NITROGEN 12 mg/dL (7-18); eGFR NON AFRICAN AMERICAN 88 mL/min (90-120)
[2018-05-21 05:33] LABS: INR 1.21 (0.85-1.17); PROTIME 14.9 SECONDS (11.6-15.0)
[2018-05-22] VITALS (24 sets, daily range): BP systolic 86–134; BP diastolic 32–95
[2018-05-22 04:52] LABS: BASOPHILS 0.5 % (0-2); EOSINOPHILS 0.7 % (0-7); HEMATOCRIT 30.4 % (42.0-54.0); HEMOGLOBIN 9.7 g/dL (13.5-17.5); IMMATURE GRANULOCYTES 0.7 % (0-5); LYMPHOCYTES 11.2 % (15-50); MCH 27.6 pg (26.0-34.0); MCHC 31.9 g/dL (31.0-37.0); MCV 86.6 fL (80.0-100.0); MONOCYTES 10.2 % (2-11); NEUTROPHILS 76.7 % (40-80); PLATELET COUNT 269 10x3/uL (130-400); RBC 3.51 10x6/uL (4.20-6.10); RDW 16.2 % (11.5-14.5); WBC 10.7 10x3/uL (4.8-10.8)
[2018-05-22 05:09] LABS: ANION GAP 10.8 mmol/L (8-16); CARBON DIOXIDE 28.1 mmol/L (21.0-32.0); CREATININE - SERUM 1.1 mg/dL (0.6-1.3); POTASSIUM - SERUM 3.9 mmol/L (3.5-5.1)
[2018-05-23] VITALS (24 sets, daily range): BP systolic 93–120; BP diastolic 44–72
[2018-05-23 03:36] LABS: BASOPHILS 0.4 % (0-2); HEMATOCRIT 28.4 % (42.0-54.0); HEMOGLOBIN 9.1 g/dL (13.5-17.5); IMMATURE GRANULOCYTES 0.4 % (0-5); LYMPHOCYTES 10.3 % (15-50); MCH 27.3 pg (26.0-34.0); MCV 85.3 fL (80.0-100.0); MEAN PLATELET VOLUME 10.3 fL (7.4-10.4); MONOCYTES 11.1 % (2-11); NEUTROPHILS 76.8 % (40-80); PLATELET COUNT 212 10x3/uL (130-400); RBC 3.33 10x6/uL (4.20-6.10); RDW 15.8 % (11.5-14.5); WBC 9.8 10x3/uL (4.8-10.8)
[2018-05-23 03:40] LABS: ANION GAP 13.5 mmol/L (8-16); CALCIUM 8.8 mg/dL (8.5-10.1); CARBON DIOXIDE 25.4 mmol/L (21.0-32.0); CREATININE - SERUM 1.1 mg/dL (0.6-1.3); POTASSIUM - SERUM 3.9 mmol/L (3.5-5.1)
[2018-05-24] VITALS (24 sets, daily range): BP systolic 79–109; BP diastolic 42–63
[2018-05-24 05:15] LABS: BASOPHILS 0.4 % (0-2); EOSINOPHILS 2.3 % (0-7); HEMATOCRIT 29.6 % (42.0-54.0); HEMOGLOBIN 9.5 g/dL (13.5-17.5); IMMATURE GRANULOCYTES 0.7 % (0-5); LYMPHOCYTES 10.6 % (15-50); MCH 27.5 pg (26.0-34.0); MCHC 32.1 g/dL (31.0-37.0); MCV 85.5 fL (80.0-100.0); MEAN PLATELET VOLUME 10.3 fL (7.4-10.4); MONOCYTES 9.6 % (2-11); NEUTROPHILS 76.4 % (40-80); PLATELET COUNT 237 10x3/uL (130-400); RBC 3.46 10x6/uL (4.20-6.10); WBC 9.5 10x3/uL (4.8-10.8)
[2018-05-24 05:24] LABS: CALC OSMOLALITY 271 mosm/kg (275-300); CALCIUM 8.9 mg/dL (8.5-10.1); CARBON DIOXIDE 29.1 mmol/L (21.0-32.0); CHLORIDE - SERUM 100 mmol/L (98-107); GLUCOSE 115 mg/dL (74-106); POTASSIUM - SERUM 3.9 mmol/L (3.5-5.1); SODIUM 135 mmol/L (136-145); UREA NITROGEN 16 mg/dL (7-18); eGFR NON AFRICAN AMERICAN 78 mL/min (90-120)
[2018-05-25] VITALS (18 sets, daily range): BP systolic 88–121; BP diastolic 24–71
[2018-05-25] MEDS ORDERED: ROCEPHIN 2 GM/D52 G1 IV (15:51)
[2018-05-25] MEDS ORDERED: Nystatin Oral Susp [ PO (15:52)
[2018-05-25] MEDS ORDERED: AMPICILLIN 2 GM/2 G1 IV (15:52)
[2018-05-25] MEDS ORDERED: CORDARONE PO (15:53)
[2018-05-25] MEDS ORDERED: LOPRESSOR25 MG PO (15:54)
[2018-05-25] MEDS ORDERED: LASIX20 MG PO (15:55)
[2018-05-25] MEDS ORDERED: SALINE FLUSH IV (15:55)
[2018-05-25] MEDS ORDERED: Potassium Cl oral po PO (16:00)
[2018-05-25] MEDS ORDERED: TESSALON PERLE100 MG PO (16:02)
[2018-05-25] MEDS ORDERED: MUCINEX600 MG PO (16:02)
[2018-05-25] MEDS ORDERED: LOMOTIL 2.5-0.1 EAC1 PO (16:03)
[2018-05-25] MEDS ORDERED: COLACE100 MG PO (16:03)
[2018-05-25] MEDS ORDERED: FLORAJEN3 CAPS460 MG PO (16:04)
[2018-05-25] MEDS ORDERED: MYCOSTATIN CREA15 GM TOPICAL (16:04)
[2018-05-26 07:27] LABS: FUNGUS MYCOLOGY CULTURE Final report (())
[2018-06-19 11:20] LABS: ACID FAST CULTURE Negative (()); ACID FAST SMEAR Negative (())
== END 2018-05-25 19:49 | DRG 853 ==
LOC: D.ER 20:48 → D.ICU 22:59 → D.CVICU 22:59 → D.M2 22:59 → D.ICU 04-25 06:14 → D.CVICU 05-05 01:35
PROVIDERS: Emergency Medicine; Family Medicine; Internal Medicine Cardiovascular Disease; Internal Medicine Hematology & Oncology; Internal Medicine Nephrology; Internal Medicine Pulmonary Disease; Thoracic Surgery (Cardiothoracic Vascular Surgery)
PROC: 5A1955Z Respiratory Ventilation, Greater than 96 Consecutive Hours (ICD-10-PCS; 2018-04-25)
PROC: 0BH17EZ Insertion of Endotracheal Airway into Trachea, Via Natural or Artificial Opening (ICD-10-PCS; 2018-04-25)
PROC: 03HY33Z Insertion of Infusion Device into Upper Artery, Percutaneous Approach (ICD-10-PCS; 2018-04-25)
PROC: 0BCB8ZZ Extirpation of Matter from Left Lower Lobe Bronchus, Via Natural or Artificial Opening Endoscopic (ICD-10-PCS; 2018-04-28)
PROC: 0BC78ZZ Extirpation of Matter from Left Main Bronchus, Via Natural or Artificial Opening Endoscopic (ICD-10-PCS; 2018-04-28)
PROC: 0BC68ZZ Extirpation of Matter from Right Lower Lobe Bronchus, Via Natural or Artificial Opening Endoscopic (ICD-10-PCS; 2018-04-28)
PROC: 0BCB8ZZ Extirpation of Matter from Left Lower Lobe Bronchus, Via Natural or Artificial Opening Endoscopic (ICD-10-PCS; 2018-04-29)
PROC: 0BC78ZZ Extirpation of Matter from Left Main Bronchus, Via Natural or Artificial Opening Endoscopic (ICD-10-PCS; 2018-04-29)
PROC: 0BC68ZZ Extirpation of Matter from Right Lower Lobe Bronchus, Via Natural or Artificial Opening Endoscopic (ICD-10-PCS; 2018-04-29)
PROC: 0BC98ZZ Extirpation of Matter from Lingula Bronchus, Via Natural or Artificial Opening Endoscopic (ICD-10-PCS; 2018-04-29)
PROC: 0BC48ZZ Extirpation of Matter from Right Upper Lobe Bronchus, Via Natural or Artificial Opening Endoscopic (ICD-10-PCS; 2018-04-29)
PROC: 0BC88ZZ Extirpation of Matter from Left Upper Lobe Bronchus, Via Natural or Artificial Opening Endoscopic (ICD-10-PCS; 2018-04-29)
PROC: 0BC58ZZ Extirpation of Matter from Right Middle Lobe Bronchus, Via Natural or Artificial Opening Endoscopic (ICD-10-PCS; 2018-04-29)
PROC: 5A1221Z Performance of Cardiac Output, Continuous (ICD-10-PCS; 2018-05-05)
PROC: 02RF08Z Replacement of Aortic Valve with Zooplastic Tissue, Open Approach (ICD-10-PCS; principal; 2018-05-05 07:30)
PROC: 02RG08Z Replacement of Mitral Valve with Zooplastic Tissue, Open Approach (ICD-10-PCS; 2018-05-05 07:30)
PROC: 0B21XEZ Change Endotracheal Airway in Trachea, External Approach (ICD-10-PCS; 2018-05-08)
PROC: 05HY33Z Insertion of Infusion Device into Upper Vein, Percutaneous Approach (ICD-10-PCS; 2018-05-11)
PROC: 0W9B30Z Drainage of Left Pleural Cavity with Drainage Device, Percutaneous Approach (ICD-10-PCS; 2018-05-15)
DX: A41.81 Sepsis due to Enterococcus (principal); J18.9 Pneumonia, unspecified organism; J96.00 Acute respiratory failure, unspecified whether with hypoxia or hypercapnia; I46.9 Cardiac arrest, cause unspecified; I21.9 Acute myocardial infarction, unspecified; N17.0 Acute kidney failure with tubular necrosis; K72.00 Acute and subacute hepatic failure without coma; I50.31 Acute diastolic (congestive) heart failure; N39.0 Urinary tract infection, site not specified; E87.2 Acidosis; J93.9 Pneumothorax, unspecified; J81.1 Chronic pulmonary edema; J90 Pleural effusion, not elsewhere classified; T17.590A Other foreign object in bronchus causing asphyxiation, initial encounter; E87.0 Hyperosmolality and hypernatremia; J98.11 Atelectasis; I48.0 Paroxysmal atrial fibrillation; N28.9 Disorder of kidney and ureter, unspecified; R16.1 Splenomegaly, not elsewhere classified; D73.5 Infarction of spleen; B95.2 Enterococcus as the cause of diseases classified elsewhere; N40.0 Benign prostatic hyperplasia without lower urinary tract symptoms; E87.6 Hypokalemia; D50.9 Iron deficiency anemia, unspecified; J30.9 Allergic rhinitis, unspecified; W07.XXXA Fall from chair, initial encounter; Y92.239 Unspecified place in hospital as the place of occurrence of the external cause; L89.159 Pressure ulcer of sacral region, unspecified stage; I35.1 Nonrheumatic aortic (valve) insufficiency; I48.91 Unspecified atrial fibrillation

== ENCOUNTER 2018-05-25 17:50 | Inpatient (IN) | payer MEDICARE, OTHER ==
[~2018-05-25] VITALS: Ht 185.4 cm; Wt 94.5 kg
--- NOTE | ~2018-05-25 | RHP ---
PATIENT: KENNETH BUSCH MEDICAL RECORD: [id number] ACCOUNT: [id number] LOCATION:[facility]1118 : 45 ADMISSION DATE: 05/25/18 REHABILITATION HISTORY AND PHYSICAL EXAMINATION POST ADMISSION PHYSICIAN EXAMINATION ADMITTING DIAGNOSIS: Critical illness myopathy. 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 He presented to Emergency Room on 04/20/2018 with febrile illness and palpitations as he was sick at home and he had a sudden onset of a coughing spell. The patient cannot stop coughing, he had a fever of 102 and in association with his coughing, he also had palpitation. EMS arrived and noted to have uncontrolled AFib. Cardiology was consulted. His lactate level was elevated, so he was given fluid bolus and converted to normal sinus rhythm. He was admitted for pneumonia, IV antibiotics, telemetry. Blood and urine cultures were positive for Enterococcus faecalis. ID was consulted. Antibiotics were changed to ampicillin. On 04/25/2018, the patient deteriorated overnight and became hypoxic, hypothermic, worsening sepsis and respiratory distress and worsening renal functions. He was transferred to the ER. White blood cell count continued to trend up despite IV ampicillin and susceptibility of enterococcus on cultures. He coded later that day, he was asystolic. He was transferred to the ICU and placed on ventilator. 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 On 05/05/2018, he went to the OR for aortic valve replacement and mitral valve replacement. On 05/12/2018, he was extubated and placed on 4 liters of O2 via nasal cannula. A bedside swallow eval on 05/13/2018 showed oropharyngeal dysphagia and recommended a mechanical soft diet with thickened liquids and speech therapy to follow for safety and dietary tolerance. His postop was complicated by prolonged immobility, progressive generalized weakness, especially in his lower extremities affecting his tolerance to PT. He is fatigued, has limited flexion and extension of his lower extremities. He has proximal muscle weakness. He has dyspnea on exertion. He is max to total assist for ADLs and mobility. He has a good family and pentecostalism support. He is very motivated to regain his strength and get back to his prior level of function. BARRIERS TO DISCHARGE: O2 demands, continuous cardiac monitoring, history of falls and need for IV antibiotics for the additional 3-4 weeks. COMORBIDITIES: In this patient include status post aortic valve and mitral valve replacement; enterococcus sepsis; fever; renal insufficiency; AFib; acute kidney injury; metabolic acidosis; metabolic alkalosis; shortness of breath; pneumonia; mitral valve and aortic valve vegetations, which were both acute; thrombocytopenia; acute respiratory failure; pulmonary infiltrates; pulmonary edema; acute diastolic failure status post myocardial infarction with elevated cardiac enzymes; splenic infarction; iron deficient anemia; hypokalemia;, diarrhea; and debility. PAST MEDICAL HISTORY: Significant for detached retina, gastritis, UTI, and kidney stones. PAST SURGICAL HISTORY: Includes knee surgery, bladder surgery, and melanoma. HISTORY AND PHYSICAL [id number] KENNETH BUSCH ALLERGIES: No known drug allergies. CURRENT MEDICATIONS: Include potassium chloride oral powder, he is on 20 mEq t.i.d. He is on Rocephin 2 grams q.12 hours, Flonase nasal spray, Flomax 0.8 mg daily, Floranex 460 mg daily, furosemide 60 mg daily, ferrous sulfate 325 mg daily, potassium 20 mEq b.i.d., Benadryl to apply topically as needed, he is on nystatin suspension 5 cc t.i.d., Mycostatin cream to apply topically b.i.d., Singulair 10 mg q.h.s., metoprolol 25 mg b.i.d., Mucinex 600 mg b.i.d., Proscar 5 mg q.h.s., Colace 100 mg b.i.d., Lomotil 1 tab q.6 hours p.r.n., amiodarone 400 mg b.i.d., chlorpheniramine 4 mg q.6 hours p.r.n., Tessalon Perles 100 mg t.i.d., and ampicillin 2 grams q.4 hours p.r.n. HABITS: No alcohol or tobacco use. FAMILY HISTORY: Noncontributory. SOCIAL HISTORY: The patient hopes to return back home and get back to his prior level of functioning. REVIEW OF SYSTEMS: GENERAL: He does complain of weakness and fatigue. HEENT: Denies cold, cough, or congestion. CARDIOVASCULAR: Denies any chest pain at this time. LUNGS: He does complain of some shortness of breath, but only with exertion. PHYSICAL EXAMINATION: VITAL SIGNS: Stable. He is afebrile. GENERAL: A well-developed gentleman, in no acute distress, alert upon exam. HEENT: Normocephalic and atraumatic. Mucosa moist. NECK: Supple. No lymphadenopathy. LUNGS: Clear at this time in upper garcia. Does have decreased breath sounds in the bases. HEART: Regular rate and rhythm. ABDOMEN: Benign. EXTREMITIES: No clubbing, cyanosis, or edema. NEUROLOGIC: He does have noted weakness. LABORATORY DATA: White count is 8.1, H&H 9.1 and 28.6, and platelet count is 279. His sodium is 137, potassium 4.0, BUN and creatinine of 18 and 1.0, and blood sugar is noted to be 105. Admit UA did show trace leukocyte esterase, but had a negative bacteria. 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 The patient has potential to make improvement. We instituted the following multidisciplinary therapies including but not limited to physical, occupational, respiratory, speech, nutritional services, prosthetics and orthotics. Given his complex medical condition and risk for more complications, rehabilitation services cannot be provided at a low level of care such as alf facility. PLAN: 1. Admit to [facility] for intensive inpatient therapy to include the following disciplines: A. Physical therapy to improve gait, all transfer skills and bed mobility to a modified independent level. HISTORY AND PHYSICAL [id number] KENNETH BUSCH B. Occupational therapy to improve activities of daily living to a modified independent level. C. Case management to assist with discharge planning and placement options. D. Nutrition to assist with nutritional needs. E. Rehabilitation nursing to assist in monitoring the patient's underlying medical conditions and to assist with any type of bowel or bladder management. 2. The patient's current medications and medical care will be continued. 3. The patient will be placed on standard fall precautions. 4. The patient's estimated length of stay is approximately 7-10 days. 5. We will watch for any signs of infection. We will continue on current IV antibiotics for duration of therapy. 6. I am going to follow up in the a.m. TRANSINT:[id number] Voice Confirmation ID: [id number] DOCUMENT ID: [id number] FOUZIA notes whether there has been none or any medical/functional change since admission: - No change since preadmission screens. FOUZIA attests patient continues to be appropriate for IRF: - Continues to be appropriate. THEO POZO MD at 1812 CC: [id number] DICTATION DATE: 05/26/18811 TAKE AWAY WORKER: 05/26/18 0855 ADM IN [place] [id number] [place] [id number]
[~2018-05-25 17:50] MED LIST changes: +AMPICILLIN 2 GM/2 G1 IV; +COLACE100 MG PO; +CORDARONE PO; +FLORAJEN3 CAPS460 MG PO; +LASIX20 MG PO; +LOMOTIL 2.5-0.1 EAC1 PO; +LOPRESSOR25 MG PO; +MUCINEX600 MG PO; +MYCOSTATIN CREA15 GM TOPICAL; +Nystatin Oral Susp [ PO; +Potassium Cl oral po PO; +ROCEPHIN 2 GM/D52 G1 IV; +SALINE FLUSH IV; +TESSALON PERLE100 MG PO
[2018-05-25 20:09] VITALS: BP 136/84; BMI 28.6
[2018-05-25 22:21] VITALS: BP 119/63
[2018-05-25 23:58] LABS: APPEARANCE CLEAR (CLEAR); BILIRUBIN NEGATIVE (NEGATIVE); COLOR YELLOW (YELLOW); GLUCOSE NEGATIVE (NEGATIVE); KETONE NEGATIVE (NEGATIVE); NITRITE NEGATIVE (NEGATIVE); PROTEIN TRACE mg/dL (NEGATIVE); SPECIFIC GRAVITY 1.005 (1.005-1.020); UROBILINOGEN NORMAL (NORMAL)
[2018-05-26] LABS: BACTERIA NONE SEEN /hpf (NONE SEEN); EPITHELIAL CELLS 0-5 /hpf (0-5); RED CELLS - URINE NONE SEEN /hpf (0-5); WHITE CELLS - URINE 0-5 /hpf (0-5)
[2018-05-26 05:35] LABS: BASOPHILS 0.4 % (0-2); EOSINOPHILS 2.2 % (0-7); HEMATOCRIT 28.6 % (42.0-54.0); HEMOGLOBIN 9.1 g/dL (13.5-17.5); IMMATURE GRANULOCYTES 0.9 % (0-5); LYMPHOCYTES 11.6 % (15-50); MCH 27.1 pg (26.0-34.0); MCHC 31.8 g/dL (31.0-37.0); MCV 85.1 fL (80.0-100.0); MONOCYTES 10.2 % (2-11); NEUTROPHILS 74.7 % (40-80); PLATELET COUNT 279 10x3/uL (130-400); RBC 3.36 10x6/uL (4.20-6.10); RDW 16.1 % (11.5-14.5); WBC 8.1 10x3/uL (4.8-10.8)
[2018-05-26 06:32] LABS: CALC OSMOLALITY 275 mosm/kg (275-300); CALCIUM 9.1 mg/dL (8.5-10.1); CARBON DIOXIDE 24.4 mmol/L (21.0-32.0); CHLORIDE - SERUM 101 mmol/L (98-107); GLUCOSE 105 mg/dL (74-106); SODIUM 137 mmol/L (136-145); UREA NITROGEN 18 mg/dL (7-18); eGFR NON AFRICAN AMERICAN 78 mL/min (90-120)
[2018-05-26 08:00] VITALS: BP 119/68
[2018-05-26 13:32] VITALS: Ht 185.4 cm; Wt 94.5 kg
[2018-05-26 19:00] VITALS: BP 119/53
[2018-05-27 06:41] LABS: BASOPHILS 0.4 % (0-2); EOSINOPHILS 1.7 % (0-7); HEMATOCRIT 28.7 % (42.0-54.0); IMMATURE GRANULOCYTES 0.9 % (0-5); LYMPHOCYTES 12.3 % (15-50); MCH 26.8 pg (26.0-34.0); MCHC 31.4 g/dL (31.0-37.0); MCV 85.4 fL (80.0-100.0); MEAN PLATELET VOLUME 10.1 fL (7.4-10.4); MONOCYTES 11.4 % (2-11); NEUTROPHILS 73.3 % (40-80); PLATELET COUNT 271 10x3/uL (130-400); RBC 3.36 10x6/uL (4.20-6.10); RDW 16.1 % (11.5-14.5)
[2018-05-27 06:48] LABS: CALC OSMOLALITY 277 mosm/kg (275-300); CALCIUM 8.9 mg/dL (8.5-10.1); CARBON DIOXIDE 27.6 mmol/L (21.0-32.0); CHLORIDE - SERUM 102 mmol/L (98-107); GLUCOSE 104 mg/dL (74-106); SODIUM 138 mmol/L (136-145); UREA NITROGEN 17 mg/dL (7-18); eGFR NON AFRICAN AMERICAN 78 mL/min (90-120)
[2018-05-27 08:00] VITALS: BP 108/60
[2018-05-27 20:44] VITALS: BP 116/59
[2018-05-28 10:00] VITALS: BP 104/65
[2018-05-28 19:00] VITALS: BP 92/45
[2018-05-29 05:40] LABS: BASOPHILS 0.3 % (0-2); EOSINOPHILS 0.5 % (0-7); HEMATOCRIT 27.7 % (42.0-54.0); HEMOGLOBIN 8.7 g/dL (13.5-17.5); IMMATURE GRANULOCYTES 0.9 % (0-5); LYMPHOCYTES 14.9 % (15-50); MCHC 31.4 g/dL (31.0-37.0); MEAN PLATELET VOLUME 9.6 fL (7.4-10.4); NEUTROPHILS 71.4 % (40-80); PLATELET COUNT 244 10x3/uL (130-400); RBC 3.22 10x6/uL (4.20-6.10); RDW 16.4 % (11.5-14.5); WBC 5.9 10x3/uL (4.8-10.8)
[2018-05-29 05:51] LABS: ANION GAP 11.3 mmol/L (8-16); CALCIUM 8.9 mg/dL (8.5-10.1); CARBON DIOXIDE 27.1 mmol/L (21.0-32.0); CREATININE - SERUM 1.1 mg/dL (0.6-1.3); POTASSIUM - SERUM 3.4 mmol/L (3.5-5.1)
[2018-05-29 08:24] VITALS: BP 124/71
[2018-05-29 19:00] VITALS: BP 105/61
[2018-05-29 21:47] VITALS: BP 97/54
[2018-05-30 07:31] VITALS: BP 100/57
[2018-05-30 19:44] VITALS: BP 102/56
[2018-05-31 09:57] VITALS: BP 99/59
[2018-05-31 22:08] VITALS: BP 117/63
[2018-06-01 07:14] LABS: BASOPHILS 0.3 % (0-2); EOSINOPHILS 0.3 % (0-7); HEMATOCRIT 28.1 % (42.0-54.0); HEMOGLOBIN 8.7 g/dL (13.5-17.5); IMMATURE GRANULOCYTES 0.3 % (0-5); LYMPHOCYTES 11.9 % (15-50); MCH 26.8 pg (26.0-34.0); MCV 86.5 fL (80.0-100.0); MEAN PLATELET VOLUME 9.9 fL (7.4-10.4); MONOCYTES 10.5 % (2-11); NEUTROPHILS 76.7 % (40-80); PLATELET COUNT 267 10x3/uL (130-400); RBC 3.25 10x6/uL (4.20-6.10); RDW 16.7 % (11.5-14.5); WBC 7.1 10x3/uL (4.8-10.8)
[2018-06-01 07:27] LABS: CALC OSMOLALITY 279 mosm/kg (275-300); CALCIUM 8.9 mg/dL (8.5-10.1); CARBON DIOXIDE 26.3 mmol/L (21.0-32.0); CHLORIDE - SERUM 104 mmol/L (98-107); GLUCOSE 99 mg/dL (74-106); SODIUM 140 mmol/L (136-145); UREA NITROGEN 15 mg/dL (7-18); eGFR NON AFRICAN AMERICAN 78 mL/min (90-120)
[2018-06-01 07:58] VITALS: BP 113/58
[2018-06-01 19:00] VITALS: BP 100/44
[2018-06-02 08:00] VITALS: BP 101/42
[2018-06-02 19:00] VITALS: BP 93/38
[2018-06-03] VITALS (7 sets, daily range): BP systolic 87–113; BP diastolic 38–71
[2018-06-03 06:22] LABS: BASOPHILS 0.3 % (0-2); EOSINOPHILS 0 % (0-7); HEMATOCRIT 27.9 % (42.0-54.0); HEMOGLOBIN 8.6 g/dL (13.5-17.5); IMMATURE GRANULOCYTES 0.3 % (0-5); LYMPHOCYTES 15.4 % (15-50); MCH 26.6 pg (26.0-34.0); MCHC 30.8 g/dL (31.0-37.0); MCV 86.4 fL (80.0-100.0); MEAN PLATELET VOLUME 10.1 fL (7.4-10.4); MONOCYTES 9.1 % (2-11); NEUTROPHILS 74.9 % (40-80); PLATELET COUNT 261 10x3/uL (130-400); RBC 3.23 10x6/uL (4.20-6.10); RDW 16.7 % (11.5-14.5); WBC 6.4 10x3/uL (4.8-10.8)
[2018-06-03 06:37] LABS: CALC OSMOLALITY 277 mosm/kg (275-300); CALCIUM 8.7 mg/dL (8.5-10.1); CARBON DIOXIDE 26.5 mmol/L (21.0-32.0); CHLORIDE - SERUM 104 mmol/L (98-107); GLUCOSE 97 mg/dL (74-106); POTASSIUM - SERUM 3.7 mmol/L (3.5-5.1); SODIUM 138 mmol/L (136-145); UREA NITROGEN 17 mg/dL (7-18); eGFR NON AFRICAN AMERICAN 78 mL/min (90-120)
[2018-06-04 08:48] VITALS: BP 125/63
[2018-06-04 19:00] VITALS: BP 107/51
[2018-06-04 22:31] VITALS: BP 98/52
[2018-06-05 05:58] LABS: BASOPHILS 0.2 % (0-2); EOSINOPHILS 0.1 % (0-7); HEMATOCRIT 34.7 % (42.0-54.0); HEMOGLOBIN 11.2 g/dL (13.5-17.5); IMMATURE GRANULOCYTES 0.3 % (0-5); LYMPHOCYTES 11.5 % (15-50); MCH 27.4 pg (26.0-34.0); MCHC 32.3 g/dL (31.0-37.0); MCV 84.8 fL (80.0-100.0); MEAN PLATELET VOLUME 10.1 fL (7.4-10.4); MONOCYTES 8.2 % (2-11); NEUTROPHILS 79.7 % (40-80); PLATELET COUNT 266 10x3/uL (130-400); RBC 4.09 10x6/uL (4.20-6.10); RDW 17.7 % (11.5-14.5); WBC 9.8 10x3/uL (4.8-10.8)
[2018-06-05 06:08] LABS: CALC OSMOLALITY 288 mosm/kg (275-300); CALCIUM 9.1 mg/dL (8.5-10.1); CARBON DIOXIDE 26.7 mmol/L (21.0-32.0); CHLORIDE - SERUM 105 mmol/L (98-107); GLUCOSE 115 mg/dL (74-106); SODIUM 144 mmol/L (136-145); UREA NITROGEN 16 mg/dL (7-18); eGFR NON AFRICAN AMERICAN 78 mL/min (90-120)
[2018-06-05 08:00] VITALS: BP 98/67
[2018-06-05 19:00] VITALS: BP 133/73
[2018-06-06 05:56] LABS: CALC OSMOLALITY 282 mosm/kg (275-300); CARBON DIOXIDE 26.7 mmol/L (21.0-32.0); CHLORIDE - SERUM 106 mmol/L (98-107); CREATININE - SERUM 0.9 mg/dL (0.6-1.3); GLUCOSE 102 mg/dL (74-106); POTASSIUM - SERUM 3.5 mmol/L (3.5-5.1); SODIUM 141 mmol/L (136-145); UREA NITROGEN 17 mg/dL (7-18); eGFR NON AFRICAN AMERICAN 88 mL/min (90-120)
[2018-06-06 08:00] VITALS: BP 136/64
[2018-06-06 23:34] VITALS: BP 138/74
[2018-06-07 08:57] VITALS: BP 103/57
[2018-06-07 20:11] VITALS: BP 142/70
[2018-06-08 08:00] VITALS: BP 123/70
[2018-06-08 09:45] LABS: BASOPHILS 0.7 % (0-2); EOSINOPHILS 0.2 % (0-7); HEMATOCRIT 37.2 % (42.0-54.0); HEMOGLOBIN 11.6 g/dL (13.5-17.5); IMMATURE GRANULOCYTES 0.3 % (0-5); LYMPHOCYTES 16.7 % (15-50); MCHC 31.2 g/dL (31.0-37.0); MCV 86.7 fL (80.0-100.0); MEAN PLATELET VOLUME 10.2 fL (7.4-10.4); MONOCYTES 15.7 % (2-11); NEUTROPHILS 66.4 % (40-80); PLATELET COUNT 271 10x3/uL (130-400); RBC 4.29 10x6/uL (4.20-6.10); RDW 17.6 % (11.5-14.5); WBC 5.7 10x3/uL (4.8-10.8)
[2018-06-08 10:06] LABS: ANION GAP 10.6 mmol/L (8-16); CALCIUM 9.3 mg/dL (8.5-10.1); CARBON DIOXIDE 29.9 mmol/L (21.0-32.0); CREATININE - SERUM 1.1 mg/dL (0.6-1.3); POTASSIUM - SERUM 3.5 mmol/L (3.5-5.1)
[2018-06-08 19:05] VITALS: BP 121/62
[2018-06-10 00:16] VITALS: BP 102/46
[2018-06-10] MEDS ORDERED: LASIX40 MG PO (12:17)
[2018-06-10] MEDS ORDERED: AMIODARONE HCL200 MG PO (12:17)
[2018-06-10] MEDS ORDERED: K-DUR20 MEQ PO (12:17)
== END 2018-06-10 14:20 | DRG 91 ==
LOC: D.REHAB 17:50
PROVIDERS: Emergency Medicine
DX: G72.81 Critical illness myopathy (principal); A41.81 Sepsis due to Enterococcus; J18.9 Pneumonia, unspecified organism; J96.00 Acute respiratory failure, unspecified whether with hypoxia or hypercapnia; I50.31 Acute diastolic (congestive) heart failure; N17.9 Acute kidney failure, unspecified; E87.2 Acidosis; E87.3 Alkalosis; J81.1 Chronic pulmonary edema; N39.0 Urinary tract infection, site not specified; G72.89 Other specified myopathies; Z95.2 Presence of prosthetic heart valve; I48.91 Unspecified atrial fibrillation; D47.3 Essential (hemorrhagic) thrombocythemia; D73.5 Infarction of spleen; D50.9 Iron deficiency anemia, unspecified; E87.6 Hypokalemia; R53.81 Other malaise; D46.9 Myelodysplastic syndrome, unspecified; R13.12 Dysphagia, oropharyngeal phase

== ENCOUNTER → 2018-07-01 09:59 | Outpatient (CLI) | payer MEDICARE, OTHER ==
[2018-05-26 13:32] VITALS: BMI 27.8
[~2018-07-01 09:59] MED LIST changes: +AMIODARONE HCL200 MG PO; +K-DUR20 MEQ PO; +LASIX40 MG PO
[2018-07-01 10:46] LABS: HEMATOCRIT 38.1 % (42.0-54.0); MCH 26.8 pg (26.0-34.0); MCHC 31.5 g/dL (31.0-37.0); MEAN PLATELET VOLUME 10.7 fL (7.4-10.4); RBC 4.48 10x6/uL (4.20-6.10); RDW 17.7 % (11.5-14.5); WBC 11.1 10x3/uL (4.8-10.8)
[2018-07-01 11:07] LABS: ALBUMIN 3.3 g/dL (3.4-5.0); ANION GAP 13.8 mmol/L (8-16); BILIRUBIN - TOTAL 0.7 mg/dL (0.2-1.3); CALCIUM 9.6 mg/dL (8.5-10.1); CARBON DIOXIDE 26.3 mmol/L (21.0-32.0); CREATININE - SERUM 1.3 mg/dL (0.6-1.3); POTASSIUM - SERUM 4.1 mmol/L (3.5-5.1); PROTEIN - SERUM 7.2 g/dL (6.4-8.2)
== END | disposition home or self-care (01) ==
LOC: D.LAB 09:59
PROVIDERS: Thoracic Surgery (Cardiothoracic Vascular Surgery)
DX: J01.90 Acute sinusitis, unspecified (principal); H69.90 Unspecified Eustachian tube disorder, unspecified ear; J91.8 Pleural effusion in other conditions classified elsewhere; D64.9 Anemia, unspecified

== ENCOUNTER → 2018-10-20 09:02 | Outpatient (CLI) | payer MEDICARE, BC ==
[2018-05-26 13:32] VITALS: BMI 27.8
--- NOTE | 2018-10-22 13:10 | EC ---
PATIENT:KENNETH BUSCH DATE OF SERVICE: 10/20/18 SEX: M MEDICAL RECORD: [id number] DATE OF : 45 LOCATION:[facility] AGE OF PATIENT: 73 ADMISSION DATE: 10/20/18 REFERRING PHYSICIAN: INTERPRETING PHYSICIAN: GRECIA ALVAREZ MD ECHOCARDIOGRAM REPORT ECHO CHARGES 4 ECHO COMPLETE Date: 10/20/18 CLINICAL DIAGNOSIS: ASSESS MITRAL/AORTIC VALVES HX OF MVR/AVR ECHOCARDIOGRAPHIC MEASUREMENTS (adult normal given) AC root (d.<3.7cm) 4.1 cm LV Septum d (<1.2 cm> 1.4 cm Valve Excursion 1.8 cm LV Septum (systole) 1.5 cm Left Atria (s.<4.0cm> 4.1 cm LVPW d(<1.2cm) 1.8 cm RV (d.<2.3cm) 4.2 cm LVPW (sytole) 2.0 cm LV diastole(<5.6CM) 5.5 cm MV E-F(>70mm/sec) cm LV systole 4.2 cm LVOT Diameter 2.1 cm MV exc.(>10mm) cm Est.ejection fraction (50-75%) % DOPPLER: LVIT cm/sec A 118 cm/sec E 112 cm/sec LA cm/sec RVSP 21 mmHg LVOT 132 cm/sec AOP1/2T m/s Asc. Ao 260 cm/sec RVOT 58 cm/sec RA cm/sec PA 101 cm/sec AV Gradient Peak 26.98mmHg AV Mean 13.83mmHg AV Area 2.1 cm MV Gradient Peak 7.78 mmHg MV Mean 4.16 mmHg MV Area cm COMMENTS: Railroad Operator: 2 ARTURO PEPPER Senior Sql Server Database Developer: 3 Dr. Snow TAPE# PACS Pericardial Effusion N DATE OF SERVICE: Adequate 2D echo, color flow, spectral Doppler and M-mode. LVH is present. LV internal dimensions are normal. There is mild septal hypokinesis consistent with postop valve state. However, LV function appears preserved at 50% or better. Prosthetic tissue aortic valve is noted with acceptable Doppler velocity, no significant AI. Left atrium minimally dilated at 4.1 cm. Mitral valve again shows tissue prosthesis with acceptable Doppler velocity and no significant MR. Right-sided chambers are grossly normal. Mild TR. ECHOCARDIOGRAM REPORT [id number] KENNETH BUSCH TRANSINT:[id number] Voice Confirmation ID: [id number] DOCUMENT ID: [id number] GRECIA ALVAREZ MD at 1310 CC: [id number] DICTATION DATE: 10/21/18 1357 RODDING MACHINE TENDER: 10/21/18 2351 DEP CLI 10/20/18 [place] [id number] [place] [id number]
== END | disposition home or self-care (01) ==
LOC: D.HCCARDIO 09:02
PROVIDERS: ATTEND Internal Medicine Interventional Cardiology
DX: I08.0 Rheumatic disorders of both mitral and aortic valves (principal)

== ENCOUNTER 2019-02-17 19:23 | Observation (INO) | payer MEDICARE, BC ==
[~2019-02-17] VITALS: Ht 185.4 cm; Wt 100.1 kg
--- NOTE | ~2019-02-17 | HP ---
PATIENT: KENNETH BUSCH MEDICAL RECORD: [id number] ACCOUNT: [id number] LOCATION:[address] : 45 ADMISSION DATE: 02/17/19 PCP: ANGEL MARTINEZ MD HISTORY AND PHYSICAL EXAMINATION DIAGNOSES: 1. Shortness of breath, dyspnea on exertion. 2. Angina. 3. Valvular heart disease, aortic valve replacement, mitral valve replacement with tissue prosthesis. 4. New-onset atrial fibrillation. HISTORY OF PRESENT ILLNESS: Mr. Busch began feeling earlier this week shortness of breath, dyspnea on exertion, chest pressure, and chest heaviness. His shortness of breath progressed. The chest pressure remained there. He presented to the Emergency Room and found to be in atrial fibrillation with rapid response. PHYSICAL EXAMINATION: GENERAL APPEARANCE: Well-nourished, well-developed, appears stated age. Level of distress, comfortable. PSYCHIATRIC: Mental status, alert, normal affect. Orientation, oriented to time, place and person. EYES: Lids and conjunctiva, noninjected. No discharge, no pallor. ENT: Lips, teeth, gums, normal dentition. Oropharynx, no cyanosis, no pallor. NECK: Carotid arteries, bilateral normal upstroke, no bruits, no thrills. JUGULAR VEINS: No jugular venous pressure or distention. CERVICAL LYMPH NODES: Nontender, nonenlarged. THYROID: Not enlarged. Nontender. No nodules. LUNGS: Respiratory effort, unlabored. CHEST: Normal curvature. No thoracic deformity. No chest wall tenderness. Percussion, resonant. Auscultation, clear. No wheezes, no rales, no rhonchi. CARDIOVASCULAR: Precordial exam, nondisplaced. No heaves or pericardial thrills. Rate and rhythm, regular. Heart sounds, normal S1, normal S2. No S3, no gallop, no rub. Systolic murmur, not heard. Diastolic murmur, not heard. EXTREMITIES: No cyanosis, no edema. Peripheral pulses, full and equal in all extremities, except as noted. No bruits appreciated. ABDOMEN: Soft, nondistended. Normal aorta. No bruit. Nontender. No masses. Liver, nontender, no hepatomegaly. Spleen, nontender, no splenomegaly. MUSCULOSKELETAL: No joint tenderness. No joint swelling. No erythema. NEUROLOGICAL: Normal gait, normal strength, normal tone. SKIN: Warm and dry. OVERALL IMPRESSION: Atrial fibrillation, new onset, unknown duration. At this time, we will start Lovenox. We will also give him sotalol. Further care depends upon his results with these. TRANSINT:[id number] Voice Confirmation ID: [id number] DOCUMENT ID: [id number] HISTORY AND PHYSICAL [id number] KENNETH BUSCH JEFFREY MD CC: [id number] DICTATION DATE: 02/18/19 105 BODY TEAM MEMBER: 02/18/19 1246 DIS IN 02/18/19 [facility] [address] [place] [address]
--- NOTE | ~2019-02-17 | DS ---
PATIENT:KENNETH BUSCH :45 MEDICAL RECORD: [id number] DISCHARGE SUMMARY ADMISSION DATE: 02/17/19 DISCHARGE DATE: 02/18/19 DISCHARGE DIAGNOSES: 1. Atrial fibrillation converted to sinus rhythm. 2. Shortness of breath, dyspnea on exertion. 3. Angina. 4. Valvular heart disease, aortic valve replacement, mitral valve replacement. HOSPITAL COURSE: Mr. Busch has no history of atrial fibrillation. He presents with a few days' duration of atrial fibrillation, was given sotalol converted to sinus rhythm. Symptomatology totally resolved, was discharged home on sotalol 80 mg b.i.d. Will follow up with [facility] in 2 to 3 weeks. TRANSINT:[id number] Voice Confirmation ID: [id number] DOCUMENT ID: [id number] RIKA FLORES MD CC: [id number] DICTATION DATE: 02/18/19 1053 BALANCE STAFF INSPECTOR: 02/19/19 0030 DIS IN 02/18/19 [place] [id number] [place] [id number]
[2019-02-17 19:43] VITALS: BP 111/64
[2019-02-17 20:03] LABS: BASOPHILS 0.2 % (0-2); EOSINOPHILS 0.2 % (0-7); HEMATOCRIT 39.4 % (42.0-54.0); HEMOGLOBIN 13.5 g/dL (13.5-17.5); IMMATURE GRANULOCYTES 0.2 % (0-5); MCH 31.4 pg (26.0-34.0); MCHC 34.3 g/dL (31.0-37.0); MCV 91.6 fL (80.0-100.0); MONOCYTES 10.4 % (2-11); RDW 13.2 % (11.5-14.5); WBC 8.2 10x3/uL (4.8-10.8)
[2019-02-17 20:04] LABS: PLATELET COUNT 142 10x3/uL (130-400)
[2019-02-17 20:17] LABS: APTT 23.7 SECONDS (22.8-39.4); INR 1.02 (0.85-1.17); PROTIME 12.9 SECONDS (11.6-15.0)
[2019-02-17 20:25] LABS: ALBUMIN 3.6 g/dL (3.4-5.0); ALKALINE PHOSPHATASE 79 U/L (46-116); ALT (SGPT) 23 U/L (10-68); BILIRUBIN - TOTAL 0.76 mg/dL (0.2-1.3); CALC OSMOLALITY 292 mosm/kg (275-300); CARBON DIOXIDE 24.7 mmol/L (21.0-32.0); CHLORIDE - SERUM 106 mmol/L (98-107); CREATININE - SERUM 1.3 mg/dL (0.6-1.3); GLUCOSE 129 mg/dL (74-106); POTASSIUM - SERUM 3.2 mmol/L (3.5-5.1); PROTEIN - SERUM 6.6 g/dL (6.4-8.2); SODIUM 145 mmol/L (136-145); UREA NITROGEN 17 mg/dL (7-18); eGFR NON AFRICAN AMERICAN 57 mL/min (90-120)
[2019-02-17 20:33] LABS: CKMB 0.8 U/L (0.0-3.6); CREATINE KINASE 56 UL (21-232); MAGNESIUM - SERUM 1.8 mg/dL (1.8-2.4)
[2019-02-17 20:34] LABS: TROPONIN-I < 0.017 ng/mL (0.000-0.060)
[2019-02-17 21:15] VITALS: BP 105/65
[2019-02-17 22:15] VITALS: BP 114/68
--- NOTE | 2019-02-17 22:38 | NUR ---
PT GIVEN BLANKET. DENIES ANY FURHTER NEEDS AT THIS TIME. AT BEDSIDE.
[2019-02-17] MEDS ORDERED: POTASSIUM99 M1 PO (23:56)
[2019-02-17] MEDS ORDERED: ASCORBIC ACID500 MG PO (23:57)
[2019-02-17] MEDS ORDERED: FERROUS SULFAT325 MG PO (23:57)
[2019-02-17] MEDS ORDERED: VITAMIN D31000 UNI2 PO (23:58)
[2019-02-17] MEDS ORDERED: VITAMIN B-12500 MC1 PO (23:59)
--- NOTE | 2019-02-18 00:08 | NUR ---
PT HAS ARRIVED TO FLOOR BY WHEELCHAIR. ANSWERING QUESTIONS APPROPRIATELY. DENIES CHEST PAIN OR DISCOMFORT AT THIS TIME. AT BEDSIDE. VITALS STABLE. INTRODUCED SELF TO PT. CALL LIGHT IN REACH. WILL CTM.
--- NOTE | 2019-02-18 00:37 | NUR ---
PT IS AAO, HARD OF HEARING. ADMIT ASSESSMENT COMPLETE. SPOUSE AT BED SIDE. PT HAS NS INFUSING TO RIGHT AC 20G. MONITOR IS ON PT 84 CAF IRREGULAR HEART RATE, VALVE REPLACEMENT NOTED, PT RIGHT LOWER LOBE HAS RHONCI. PT STATES OCCASIONAL COUGH. NOT REALLY PRODUCTIVE. PT HAS URINAL AT BEDSIDE. PT WILL CALL FOR ASSIST. BED LOW AND CALL LIGHT IN REACH. WILL CPOC
[2019-02-18 00:46] VITALS: BP 108/69; Ht 185.4 cm; Wt 100.1 kg
[2019-02-18 04:00] VITALS: BP 91/52
[2019-02-18 07:22] LABS: BASOPHILS 0.3 % (0-2); EOSINOPHILS 0.2 % (0-7); HEMATOCRIT 36.2 % (42.0-54.0); HEMOGLOBIN 12.2 g/dL (13.5-17.5); IMMATURE GRANULOCYTES 0.2 % (0-5); LYMPHOCYTES 33.2 % (15-50); MCH 30.9 pg (26.0-34.0); MCHC 33.7 g/dL (31.0-37.0); MCV 91.6 fL (80.0-100.0); MEAN PLATELET VOLUME 11.5 fL (7.4-10.4); MONOCYTES 8.7 % (2-11); NEUTROPHILS 57.4 % (40-80); PLATELET COUNT 131 10x3/uL (130-400); RBC 3.95 10x6/uL (4.20-6.10); RDW 13.2 % (11.5-14.5); WBC 6.3 10x3/uL (4.8-10.8)
--- NOTE | 2019-02-18 07:30 | NUR ---
A/A/OX3. DENIES ANY PAIN, DISCOMFORT OR SOB. ASSESSMENT COMPLETED. BED IN LOW POSITION AND CALL LIGHT IN REACH. WILL CONTINUE POC.
[2019-02-18 07:39] LABS: CARBON DIOXIDE 27.2 mmol/L (21.0-32.0); CREATININE - SERUM 1.2 mg/dL (0.6-1.3); POTASSIUM - SERUM 3.2 mmol/L (3.5-5.1)
[2019-02-18 08:27] VITALS: BP 96/51
--- NOTE | 2019-02-18 09:45 | NUR ---
PT IS AAOX4 RESP UNLABORED SKIN W/D COLOR WNL PT DENIES ANY NEEDS OR DISCOMFORT NAD NOTED PT AWAITING DISCHARGE
--- NOTE | 2019-02-18 10:36 | NUR ---
DISCHARGE INSTRUCTIONS REVIEWED WITH PT AND VERBALIZES UNDERSTANDING WITH NO QUESTIONS. SL REMOVED FROM RIGHT FOREARM WITHOUT DIFFICULTY. LEFT FLOOR VIA W/C WITH ALL BELONGINGS AND LEFT FACILITY VIA PRIVATE VEHICLE WITH HIS .
--- NOTE | 2019-02-19 09:09 | MORECARE ---
CASE MANAGEMENT DISCHARGE SUMMARY PATIENT: KENNETH BUSCH UNIT: [id number] ADM DATE: 02/17/19 AGE: 73 : 45 SEX: M ROOM/BED: D.2113 AUTHOR: DINAE SINHA PHYSICIAN: REFERRING PHYSICIAN: RIKA FLORES MD DATE OF SERVICE: 02/19/19 Discharge Plan Patient Name: KENNETH BUSCH Facility: [facility]:[place] : 1945 Planned Disposition: Home Anticipated Discharge Date: 02/18/19 Discharge Date: 02/18/2019 Expected LOS: 1 Initial Reviewer: [email or web address] Initial Review Date: 02/19/2019 Generated: 02/19/19 10:09 am Patient Name: KENNETH BUSCH Page [id number] at 0909 All edits/amendments must be made on the electronic document DICTATION DATE: 02/19/19908 [facility] NURSE STAFF: NASIR 02/19/19908 RPT#: [id number] DC DATE:02/18/19 STATUS: DIS IN [facility] [address] [place] [address] END OF REPORT
== END 2019-02-18 10:45 | disposition home or self-care (01) ==
LOC: D.ER 19:23 → OBSVTIME 22:44 → D.M2 22:44
PROVIDERS: Family Medicine; ADMIT Internal Medicine Interventional Cardiology; ATTEND Internal Medicine Interventional Cardiology
DX: I48.91 Unspecified atrial fibrillation (principal); R06.02 Shortness of breath; I20.9 Angina pectoris, unspecified; Z95.2 Presence of prosthetic heart valve

== ENCOUNTER → 2019-10-22 09:01 | Outpatient (CLI) | payer MEDICARE, BC ==
[2019-02-18 00:46] VITALS: BMI 29.1
[~2019-10-22 09:01] MED LIST changes: +ASCORBIC ACID500 MG PO; +POTASSIUM99 M1 PO; +VITAMIN B-12500 MC1 PO; +VITAMIN D31000 UNI2 PO
--- NOTE | 2019-10-26 08:31 | EC ---
PATIENT:KENNETH BUSCH DATE OF SERVICE: 10/22/19 SEX: M MEDICAL RECORD: [id number] DATE OF : [birth year] [facility] AGE [facility] PATIENT: 74 ADMISSION DATE: 10/22/19 REFERRING PHYSICIAN: INTERPRETING PHYSICIAN: GRECIA ALVAREZ MD ECHOCARDIOGRAM REPORT ECHO CHARGES 4 ECHO COMPLETE Date: 10/22/19 CLINICAL DIAGNOSIS: HEART MURMUR, HX OF AVR/MVR ECHOCARDIOGRAPHIC MEASUREMENTS (adult normal given) AC root (d.<3.7cm) 3.6 cm LV Septum d (<1.2 cm> 1.6 cm Valve Excursion 1.4 cm LV Septum (systole) 1.8 cm Left Atria (s.<4.0cm> 4.7 cm LVPW d(<1.2cm) 1.7 cm RV (d.<2.3cm) 4.2 cm LVPW (sytole) 1.8 cm LV diastole(<5.6CM) 5.7 cm MV E-F(>70mm/sec) cm LV systole 4.1 cm LVOT Diameter 2.2 cm MV exc.(>10mm) 1.5 cm Est.ejection fraction (50-75%) % DOPPLER: LVIT cm/sec A 33.0 cm/sec E 110.0 cm/sec LA cm/sec RVSP 22 mmHg LVOT 87 cm/sec AOP1/2T m/s Asc. Ao 164 cm/sec RVOT 60 cm/sec RA cm/sec PA 111 cm/sec AV Gradient Peak 10.73mmHg AV Mean 5.93 mmHg AV Area 1.9 cm MV Gradient Peak 8.00 mmHg MV Mean 3.76 mmHg MV Area cm COMMENTS: Meat Selector: 2 ARTURO PEPPER Automatic Furnace Operator: 3 Dr. Snow TAPE# PACS Pericardial Effusion N DATE OF SERVICE: Adequate 2D, color flow imaging, spectral Doppler, and M-Mode. LVH is present. LV internal dimension is normal. Wall motion is normal. EF is greater than or equal or equal to 50%. 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 Trivial AI. Left atrium is mildly dilated at 4.7 cm. 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 Right-sided pressure grossly normal. Trivial TR. ECHOCARDIOGRAM REPORT [id number] SHAW TRANSINT:[id number] Voice Confirmation ID: [id number] DOCUMENT ID: [id number] GRECIA ALVAREZ MD at 0831 CC: [id number] DICTATION DATE: 10/25/19 1314 CURING ROOM WORKER: 10/26/19 0011 DEP CLI 10/22/19 [place] [id number] [place] [id number]
== END | disposition home or self-care (01) ==
LOC: D.HCCECHO 09:01
PROVIDERS: ATTEND Internal Medicine Interventional Cardiology
DX: R01.1 Cardiac murmur, unspecified (principal)

== ENCOUNTER → 2020-10-23 09:04 | Outpatient (CLI) | payer MEDICARE, BC ==
[2019-02-18 00:46] VITALS: BMI 29.1
--- NOTE | ~2020-10-23 | EC ---
PATIENT:KENNETH BUSCH DATE OF SERVICE: 10/23/20 SEX: M MEDICAL RECORD: [id number] DATE OF : 45 LOCATION:[facility] AGE OF PATIENT: 75 ADMISSION DATE: 10/23/20 REFERRING PHYSICIAN: INTERPRETING PHYSICIAN: GRECIA ALVAREZ MD ECHOCARDIOGRAM REPORT ECHO CHARGES 4 ECHO COMPLETE Date: 10/23/20 CLINICAL DIAGNOSIS: ASSESS EF/AVR/MVR HX OF HTN/AFIB ECHOCARDIOGRAPHIC MEASUREMENTS (adult normal given) AC root (d.<3.7cm) 3.6 cm LV Septum d (<1.2 cm> 1.2 cm Valve Excursion 1.7 cm LV Septum (systole) 1.6 cm Left Atria (s.<4.0cm> 4.0 cm LVPW d(<1.2cm) 1.3 cm RV (d.<2.3cm) 4.5 cm LVPW (sytole) 1.8 cm LV diastole(<5.6CM) 5.6 cm MV E-F(>70mm/sec) cm LV systole 3.6 cm LVOT Diameter 2.1 cm MV exc.(>10mm) cm Est.ejection fraction (50-75%) % DOPPLER: LVIT cm/sec A 124.0cm/sec E 117.0 cm/sec LA cm/sec RVSP 29 mmHg LVOT 96 cm/sec AOP1/2T m/s Asc. Ao 282 cm/sec RVOT 60 cm/sec RA cm/sec PA 124 cm/sec AV Gradient Peak 31.77mmHg AV Mean 17.28mmHg AV Area 1.3 cm MV Gradient Peak 10.08mmHg MV Mean 3.86 mmHg MV Area cm COMMENTS: Property Appraiser: 2 ARTURO PEPPER Physician Practice Manager: 3 Dr. Snow TAPE# PACS Pericardial Effusion N DATE OF SERVICE: Adequate 2D, color flow imaging, spectral Doppler, and M-Mode. LVH is present. LV internal dimensions are upper limits of normal at 5.6 cm. LV wall motion is normal. EF is greater than or equal to 55%. Tissue prosthetic aortic valve was noted. A mildly elevated velocity at 31 mmHg putting this in mild range. The left atrium is normal at 4.0 cm. Mitral valve shows no prolapse. Mild MR. Right side is grossly normal. Trace TR. ECHOCARDIOGRAM REPORT [id number] KENNETH BUSCH TRANSINT:[id number] Voice Confirmation ID: [id number] DOCUMENT ID: [id number] GRECIA ALVAREZ MD CC: [id number] DICTATION DATE: 10/24/20805 [place] [employer] GUIDE: 10/24/20 1155 DEP CLI 10/23/20 [place] [id number]
== END | disposition home or self-care (01) ==
LOC: D.HCCECHO 09:00
PROVIDERS: ATTEND Internal Medicine Interventional Cardiology
DX: I10 Essential (primary) hypertension (principal)